=== PATIENT | female | born 1970 | race Caucasian/White ===

== ENCOUNTER 2017-03-01 17:40 | Emergency (ER) | payer MEDICAID, OTHER ==
[2017-03-01] MEDS ORDERED: 0.9 % SODIUM CHLORIDE 1,000 ML BAG IV ONE (18:22)
[2017-03-01] MEDS ORDERED: DIAZEPAM 5 MG/1 ML TUBX IVP ONE (18:25)
[2017-03-01] MEDS ORDERED: ACETAMINOPHEN 500 MG TABLET PO ONE (18:31)
--- NOTE | 2017-03-01 19:04 | Emergency Department Record ---
History of Present Illness - General Chief Complaint: Neck Injury/Pain Stated Complaint: HEAD AND NECK PAIN Time Seen by Provider: 03/01/17 18:19 Source: Patient Mode of Arrival: Ambulatory Limitations: No limitations - History of Present Illness Initial Comments: pt just got back from [place] and has pain in her head and neck and upper back on both sides. she denies any injury. she has never had anything like this before. she thinks she might have a sinus infection. she denies numbness. MD Complaint: Neck pain, Upper back pain, Other Onset/Timin -: Days(s) Place: Other Radiation: Head, Upper back Severity: Mild Quality: Aching Consistency: Constant Improves With: None Worsens With: None - Related Data Home Medications Medication Instructions Recorded Confirmed Last Taken Alprazolam [Xanax] 0.5 mg PO BID PRN 12/14/14 03/01/17 02/27/17 Paroxetine HCl [Paxil] 20 mg PO DAILY 12/14/14 03/01/17 02/27/17 Previous Rx's Medication Instructions Recorded Amoxicillin/Potassium Clav 1 tab PO BID #20 tab 03/01/17 [Augmentin 875-125 Tablet] Cyclobenzaprine HCl [Flexeril] 10 mg PO TID #10 tablet 03/01/17 Hydrocodone/Acetaminophen [Webster 1 each PO QID #7 tablet 03/01/17 5-325 Tablet] Ibuprofen [Motrin 600Mg] 600 mg PO Q6H #20 tablet 03/01/17 Allergies Allergy/AdvReac Type Severity Reaction Status Date / Time No Known Drug Allergies Allergy Verified 06/19/16 16:38 Review of Systems Reviewed: No additional complaints except as noted below Constitutional: Reports: As per HPI. Denies: Chills, Fever, Malaise, Night sweats, Weakness, Weight change Eyes: Reports: As per HPI. Denies: Eye discharge, Eye pain, Photophobia, Vision change ENT: Reports: As per HPI. Denies: Congestion, Dental pain, Ear pain, Epistaxis , Hearing loss, Throat pain Respiratory: Reports: As per HPI. Denies: Cough, Dyspnea, Hemoptysis, Stridor, Wheezes Cardiovascular: Reports: As per HPI. Denies: Arrhythmia, Chest pain, Dyspnea on exertion, Edema, Murmurs, Orthopnea, Palpitations, Paroxysmal nocturnal dyspnea, Rheumatic Fever, Syncope Endocrine: Reports: As per HPI. Denies: Fatigue, Heat or cold intolerance, Polydipsia, Polyuria Gastrointestinal: Reports: As per HPI. Denies: Abdominal pain, Constipation, Diarrhea, Hematemesis, Hematochezia, Melena, Nausea, Vomiting Genitourinary: Reports: As per HPI. Denies: Abnormal menses, Discharge, Dyspareunia, Dysuria, Frequency, Hematuria, Incontinence, Retention, Urgency Musculoskeletal: Reports: As per HPI. Denies: Arthralgia, Back pain, Gout, Joint swelling, Myalgia, Neck pain Skin: Reports: As per HPI. Denies: Bruising, Change in color, Change in hair/ nails, Lesions, Pruritus, Rash Neurological: Reports: As per HPI. Denies: Abnormal gait, Confusion, Headache, Numbness, Paresthesias, Seizure, Tingling, Tremors, Vertigo, Weakness Psychiatric: Reports: As per HPI. Denies: Anxiety, Auditory hallucinations, Depression, Homicidal thoughts, Suicidal thoughts, Visual hallucinations Hematological/Lymphatic: Reports: As per HPI. Denies: Anemia, Blood Clots, Easy bleeding, Easy bruising, Swollen glands Past Medical History - SOCIAL HISTORY Smoking Status: Current every day smoker Drug Use: None - RESPIRATORY Hx Respiratory Disorders: No - CARDIOVASCULAR Hx Cardio Disorders: No - NEURO Hx Neuro Disorders: No - GI Hx GI Disorders: No - Hx Genitourinary Disorders: No - ENDOCRINE Hx Endocrine Disorders: No - MUSCULOSKELETAL Hx Musculoskeletal Disorders: No - PSYCH Hx Psych Problems: Yes Hx Anxiety: Yes Hx Depression: Yes - HEMATOLOGY/ONCOLOGY Hx Hematology/Oncology Disorders: No Family Medical History Hx Cancer: Father, Brother/Sister, Grandparents Hx Heart Disease: Father, Mother, Grandparents Hx Resp Disorders: Grandparents Hx Stroke: Grandparents Physical Exam - General General Appearance: Alert, Oriented x3, Cooperative, Mild distress - Head Head exam: Normal inspection - Eye Eye exam: Normal appearance, PERRL, EOMI Pupils: Normal accommodation - ENT ENT exam: Normal exam, Mucous membranes moist, Normal external ear exam, Normal orophraynx Ear exam: Normal external inspection. negative: External canal tenderness Nasal Exam: Normal inspection. negative: Discharge, Sinus tenderness Mouth exam: Normal external inspection, Tongue normal Teeth exam: Normal inspection. negative: Dental caries Throat exam: Normal inspection. negative: Tonsillar erythema, Tonsillar exudate - Neck Neck exam: Normal inspection, Full ROM, Tenderness (in musculature only) - Respiratory Respiratory exam: Normal lung sounds bilaterally. negative: Respiratory distress - Cardiovascular Cardiovascular Exam: Regular rate, Normal rhythm, Normal heart sounds - GI/Abdominal GI/Abdominal exam: Soft, Normal bowel sounds. negative: Tenderness - Rectal Rectal exam: Deferred - exam: Deferred - Extremities Extremities exam: Normal inspection, Full ROM, Normal capillary refill, Tenderness Image of Full Body: 1 - tender - Back Back exam: Reports: Normal inspection, Full ROM. Denies: Muscle spasm, Rash noted, Tenderness - Neurological Neurological exam: Alert, CN II-XII intact, Normal gait, Oriented X3 - Psychiatric Psychiatric exam: Normal affect, Normal mood - Skin Skin exam: Dry, Intact, Normal color, Warm Medical Decision Making - Management Options MDM Management: Additional Work-up Planned (e.g. ADM/Transfer/OP Study) - Data Complexity MDM Data: Labs Ordered and/or Reviewed, X-Ray Ordered and/or Reviewed - Lab Data Result diagrams: 03/01/17 19:05 03/01/17 19:05 Disposition Disposition: Discharge Clinical Impression: Sinusitis Qualifiers: Sinusitis location: maxillary Chronicity: acute Recurrence: non-recurrent Qualified Code(s): J01.00 - Acute maxillary sinusitis, unspecified Cervical muscle strain Qualifiers: Encounter type: initial encounter Qualified Code(s): S16.1XXA - Strain of muscle, fascia and tendon at neck level, initial encounter Disposition: Home, Self-Care Condition: (1) Good Instructions: Cervical Sprain (ED), Sinusitis (ED) Additional Instructions: follow up with family doctor thursday. return sooner if worse. moist heat to neck, Prescriptions: Amoxicillin/Potassium Clav [Augmentin 875-125 Tablet] 1 tab PO BID #20 tab Cyclobenzaprine HCl [Flexeril] 10 mg PO TID #10 tablet Hydrocodone/Acetaminophen [Webster 5-325 Tablet] 1 each PO QID #7 tablet Ibuprofen [Motrin 600Mg] 600 mg PO Q6H #20 tablet Forms: Patient Portal Access
[2017-03-01 19:12] LABS: BASO % 0.4 % (0-6); HEMATOCRIT 49.6 % (35.0-47.0); HEMOGLOBIN 17.1 gm/dl (11.6-16.0); LYMPH % 27.3 % (16-45); MEAN CELL VOLUME 90.3 fl (81-97); MEAN CORPUSCULAR HEMOGLOBIN 31.1 pg (27-33); MEAN CORPUSCULAR HGB CONC 34.5 g/dl (32-36); MEAN PLATELET VOLUME 11.7 fl (7.4-10.4); MONO % 12.3 % (0-9); PLATELET COUNT 135 K/uL (130-400); RED BLOOD COUNT 5.49 M/uL (3.80-5.40); WHITE BLOOD COUNT W/O DIFF 4.7 K/uL (4.2-12.2)
[2017-03-01 19:27] LABS: BLOOD UREA NITROGEN 11 mg/dL (7-17); CREATININE 0.7 mg/dL (0.52-1.04); EST GLOMERULAR FILTRATION RATE > 60 ml/min; GLUCOSE,RANDOM 103 mg/dL (70-110)
[2017-03-01 19:42] LABS: ERYTHROCYTE SEDIMENTATION RATE 9 mm/hr (0-20)
[2017-03-01] MEDS ORDERED: POTASSIUM CHLORIDE 20 MEQ TABLET PO ONE (20:31)
[2017-03-01] MEDS ORDERED: KETOROLAC 30 MG/ML VIAL IVP ONE (20:35)
[2017-03-01] MEDS ORDERED: AMOXICILLIN/POTASSIUM CLAV 875MG/125MG TABLET PO ONE (20:36)
--- NOTE | 2017-03-05 15:14 | CT SCAN REPORT ---
EXAM: HEAD CT WITHOUT CONTRAST HISTORY: HEADACHE FOR FIVE DAYS, STIFF NECK AT THE BASE OF THE SKULL INTRACTABLE. TECHNIQUE: Contiguous axial images from the cerebral convexities to the foramen magnum were obtained without contrast. Comparison: Head CT 08/15/12. FINDINGS: The brain volume is normal. No acute intracranial hemorrhage, mass effect, or midline shift. No CT evidence of acute infarct. The ventricles, basal cisterns, and sulci are within normal limits. The osseous structures and soft tissues are unremarkable. Mild mucosal thickening right maxillary sinus. IMPRESSION: 1. NORMAL HEAD CT. 2. MILD MUCOSAL THICKENING IN THE RIGHT MAXILLARY SINUS COULD RELATE TO CHRONIC SINUSITIS. JOB NUMBER: [id number] MTDD
== END 2017-03-01 21:34 | disposition home or self-care (01) ==
LOC: ER 17:40
DX: S16.1XXA Strain of muscle, fascia and tendon at neck level, initial encounter (principal); J01.00 Acute maxillary sinusitis, unspecified; R51 Headache; X58.XXXA Exposure to other specified factors, initial encounter
CPT/HCPCS: 99284 ×2; 96374; 96375; 85025; 85651; 80048; 70450; J1885; J3360; J7030

== ENCOUNTER 2017-11-09 14:05 | Observation (INO) | payer SELFPAY ==
--- NOTE | 2017-11-09 14:21 | Emergency Department Record ---
History of Present Illness - General Chief Complaint: Shortness of breath Stated Complaint: FELI Time Seen by Provider: 11/09/17 14:12 Source: Patient Mode of Arrival: Ambulatory Limitations: No limitations - History of Present Illness Initial Comments: 47 yo female reports she has not felt well since about 7am. She reports she had an AMI on Thursday one week ago. She reports she had 3 stents placed at [facility] [place]. She had some leakage from the cath sight otherwise reports no complications. She reports that throughout the day she has felt a heaviness in the chest and a feeling of shortness of breath. The symptoms seem worse with activity. No fever. No cough. No leg pain or swelling. No pain into the back. She had some sweating earlier today as well. MD Complaint: Chest pain, Shortness of breath Onset/Timin -: Hour(s) Radiation: Other Quality: Other Consistency: Constant Improves With: Nothing Worsens With: Nothing Context: Other (Recent Acute IN) Associated Symptoms: Chest pain (heavy feeling), Diaphoresis Treatments Prior to Arrival: None - Related Data Home Oxygen Therapy: No Home Medications Medication Instructions Recorded Confirmed Last Taken Aspirin 81 mg PO DAILY 11/09/17 11/09/17 11/09/17 Atorvastatin Calcium 10 mg PO DAILY 11/09/17 11/09/17 Unknown Lisinopril 10 mg PO DAILY 11/09/17 11/09/17 11/09/17 Metoprolol Succinate [Toprol Xl] 12.5 mg PO BID 11/09/17 11/09/17 11/09/17 Ticagrelor [Brilinta] 60 mg PO BID 11/09/17 11/09/17 11/09/17 Allergies Allergy/AdvReac Type Severity Reaction Status Date / Time No Known Drug Allergies Allergy Verified 11/09/17 14:17 Travel Screening - Travel/Exposure Within Last 30 Days Have you traveled within the last 30 days?: No Review of Systems Constitutional: Denies: Chills, Fever, Malaise, Weakness Eyes: Denies: Eye discharge ENT: Denies: Congestion, Ear pain, Epistaxis, Throat pain Respiratory: Reports: Dyspnea. Denies: Cough, Hemoptysis, Stridor, Wheezes Cardiovascular: Reports: Chest pain, Dyspnea on exertion. Denies: Arrhythmia, Edema, Palpitations, Syncope Endocrine: Denies: Fatigue, Polydipsia, Polyuria Gastrointestinal: Denies: Abdominal pain, Diarrhea, Nausea, Vomiting Genitourinary: Denies: Dysuria, Urgency Musculoskeletal: Denies: Arthralgia, Back pain, Joint swelling, Myalgia Skin: Reports: Bruising (right groin after surgery). Denies: Change in color, Rash Neurological: Denies: Confusion, Headache, Numbness, Weakness Psychiatric: Denies: Anxiety Hematological/Lymphatic: Denies: Blood Clots, Easy bleeding, Easy bruising, Swollen glands Past Medical History - SOCIAL HISTORY Smoking Status: Current every day smoker Drug Use: None - RESPIRATORY Hx Respiratory Disorders: No - CARDIOVASCULAR Hx Cardio Disorders: No - NEURO Hx Neuro Disorders: No - GI Hx GI Disorders: No - Hx Genitourinary Disorders: No - ENDOCRINE Hx Endocrine Disorders: No - MUSCULOSKELETAL Hx Musculoskeletal Disorders: No - PSYCH Hx Psych Problems: Yes Hx Anxiety: Yes Hx Depression: Yes - HEMATOLOGY/ONCOLOGY Hx Hematology/Oncology Disorders: No Family Medical History Hx Cancer: Father, Brother/Sister, Grandparents Hx Heart Disease: Father, Mother, Grandparents Hx Resp Disorders: Grandparents Hx Stroke: Grandparents Physical Exam - General General Appearance: Alert, Oriented x3, Cooperative, No acute distress Limitations: No limitations - Head Head exam: Atraumatic, Normal inspection - Eye Eye exam: Normal appearance, PERRL. negative: Conjunctival injection, Scleral icterus - ENT ENT exam: Normal exam, Mucous membranes moist Ear exam: Normal external inspection Nasal Exam: Normal inspection Mouth exam: Normal external inspection Teeth exam: Normal inspection Throat exam: Normal inspection - Neck Neck exam: Normal inspection, Full ROM. negative: Tenderness - Respiratory Respiratory exam: Normal lung sounds bilaterally. negative: Respiratory distress - Cardiovascular Cardiovascular Exam: Regular rate, Normal rhythm, Normal heart sounds Peripheral Pulses: 2+: Radial (R), Radial (L) - GI/Abdominal GI/Abdominal exam: Soft. negative: Distended, Guarding, Rebound, Rigid, Tenderness - Rectal Rectal exam: Deferred - exam: Deferred - Extremities Extremities exam: Normal inspection, Full ROM, Normal capillary refill, Other ( no calf pain or swelling). negative: Calf tenderness, Pedal edema, Tenderness - Back Back exam: Reports: Normal inspection, Full ROM. Denies: CVA tenderness (R), CVA tenderness (L), Muscle spasm, Paraspinal tenderness, Rash noted, Tenderness , Vertebral tenderness - Neurological Neurological exam: Alert, Normal gait, Oriented X3, Reflexes normal - Psychiatric Psychiatric exam: Normal affect, Normal mood - Skin Skin exam: Other (bruising to the right groin, soft,) Course Vital Signs 11/09/17 14:10 Temperature 97.5 F L Pulse Rate 52 L Respiratory 16 Rate Blood Pressure 148/91 Pulse Ox 100 - Reevaluation(s) Reevaluation #1: EKG 14:14 sinus bradycardia with a rate of 51, intervals normal, axis normal, ST no acute changes. 11/09/17 14:34 11/09/17 14:52 The Chest XR was negative for acute process. Deep inspiration. 11/09/17 14:53 No acute changes on the CBC or CMP 11/09/17 15:00 The Troponin is 0.012 The BNP is 354 11/09/17 15:13 I discussed the case with Dr Barcenas of [facility] [place] cardi[place]. Given the normal EKG, normal enzymes he did not recommend transfer at this time. He recommended serial enzymes. The patient's shaper set up operator is Dr Baumann. Dr Baumann is at [facility] tomorrow and will be consulted. Medical Decision Making - Lab Data Result diagrams: 11/09/17 14:20 11/09/17 14:20 Disposition Disposition: Admit Clinical Impression: Chest pain, Dyspnea Disposition: Still a Patient at [facility] Decision to Admit: Admit from ER Decision to Admit Date: 11/09/17 Decision to Admit Time: 15:15 Condition: (2) Stable Forms: Patient Portal Access Time of Disposition: 15:15 Quality - Quality Measures Quality Measures: N/A - Blood Pressure Screening Does Patient Have Any of the Following: No Blood Pressure Classification: Hypertensive Reading Systolic Measurement: 148 Diastolic Measurement: 91 Screening for High Blood Pressure: < Pre-Hypertensive BP, F/U Documented > [ [id number]] Pre-Hypertensive Follow-up Interventions: Referral to alternative/primary care provider.
[2017-11-09 14:26] LABS: BASO % 0.6 % (0-6); EOS % 1.2 % (0-6); GRAN % 49.6 % (47-80); HEMATOCRIT 47.7 % (35.0-47.0); LYMPH % 36.2 % (16-45); MEAN CELL VOLUME 92.1 fl (81-97); MEAN CORPUSCULAR HEMOGLOBIN 30.9 pg (27-33); MEAN CORPUSCULAR HGB CONC 33.5 g/dl (32-36); MEAN PLATELET VOLUME 10.8 fl (7.4-10.4); MONO % 12.4 % (0-9); PLATELET COUNT 289 K/uL (130-400); RED BLOOD COUNT 5.18 M/uL (3.80-5.40); RED CELL DISTRIBUTION WIDTH 13.9 % (11.5-14.5); WHITE BLOOD COUNT W/O DIFF 6.7 K/uL (4.2-12.2)
[2017-11-09 14:39] LABS: INR 0.93; PARTIAL THROMBOPLASTIN TIME 27.5 SECONDS (24.5-39.1)
[2017-11-09 14:40] LABS: BLOOD UREA NITROGEN 7 mg/dL (6-20); CREATININE 0.6 mg/dL (0.5-0.9); EST GLOMERULAR FILTRATION RATE > 60 mL/min
[2017-11-09 14:41] LABS: TOTAL PROTEIN 7.5 g/dL (6.6-8.7)
[2017-11-09 14:43] LABS: GLUCOSE,RANDOM 113 mg/dL (74-109)
[2017-11-09 14:45] LABS: ALT/SGPT 35 U/L (<33); AST/SGOT 25 U/L (10.0-35.0)
[2017-11-09 14:46] LABS: ALB/GLOB RATIO 1.3 (1.1-1.8); ALBUMIN 4.3 g/dL (4.0-5.0); ALKALINE PHOSPHATASE 135 U/L (35-104); CREATINE PHOSPHOKINASE 108 U/L (26-192)
--- NOTE | 2017-11-09 15:34 | History & Physical ---
History of Present Illness - Date of Service Date of Service for History & Physical: 11/10/17 - History of Present Illness Admitting Diagnosis: Chest pain History of Present Illness: Mrs. Dye is a 47 year-old female who presented to the ED on 11/09/17 with complaint of "chest heaviness". She stated that she has not felt well since about 7am. She reports she had an AMI on Thursday one week ago. She reports she had 3 stents placed at [facility] [place]. She had some leakage from the cath sight otherwise reports no complications. She reports that throughout the day she has felt a heaviness in the chest and a feeling of shortness of breath. The symptoms seem worse with activity. No fever. No cough. No leg pain or swelling. No pain into her back. She had some sweating earlier today as well. Her history includes: ex-smoker (quit on 11/01/17), alcoholism (6 beers per day, has not drank since 11/01/17), anxiety and depression, and VA with 3 stents on 11/02/17. She has been taking daily ASA 81mg, Brilinta 90mg bid, metoprolol 12.5mg bid, lisinopril 10mg qd, and atorvastatin 40mg qhs since her discharge from [facility] on . In the ED, her vital signs were: BP 148/91, HR 52, RR 16, T 97.5 and 100% O2 on room air. Her CBC and CMP were unremarkable, BNP 354 and troponin 0.012. ECG showed sinus pretty, rate 51, normal intervals and axis, no acute ST changes. Chest x-ray was negative for acute process. Dr. Cabral discussed the case with Dr. Barcenas of [facility] cardiology. Given the normal EKG, normal enzymes he did not recommend transfer at this time. He recommended serial enzymes. The patient's bead machine operator is Dr Baumann, who will be at [facility] on 11/10, cardiology consult ordered. Based on pt's recent history of VA, pt. was admitted for observation of chest pain with serial enzymes. Pt. was placed on continuous heart monitor and SaO2 monitor. 11/09/17 1600: Pt. is resting in bed, she states that her feeling of "chest heaviness" has slightly improved. She states that her shortness of breath has resolved. She states that she had been feeling well since she was discharged from [facility] and that she even went outside yesterday to clear snow from her vehicles. She also did mention to her RN that she had been experiencing increased belching and reflux since last night. Plan to continue monitoring serial enzymes, vital signs, EKG strips. Will order 40mg protonix IV for gerd symptoms. Cardiology consult for Dr. Weldon was ordered by Dr. Cabral. Travel Screening - Travel/Exposure Within Last 30 Days Have you traveled within the last 30 days?: No Review of Systems Constitutional: Denies: Chills, Fever, Malaise, Weakness Eyes: Denies: Eye discharge ENT: Denies: Congestion, Ear pain, Epistaxis, Throat pain Respiratory: Denies: Cough, Hemoptysis, Stridor, Wheezes Cardiovascular: Reports: Chest pain, Dyspnea on exertion. Denies: Arrhythmia, Edema, Palpitations, Syncope Endocrine: Denies: Fatigue, Polydipsia, Polyuria Gastrointestinal: Denies: Abdominal pain, Diarrhea, Nausea, Vomiting Genitourinary: Denies: Dysuria, Urgency Musculoskeletal: Denies: Arthralgia, Back pain, Joint swelling, Myalgia Skin: Reports: Bruising (right groin after surgery). Denies: Change in color, Rash Neurological: Denies: Confusion, Headache, Numbness, Weakness Psychiatric: Denies: Anxiety Hematological/Lymphatic: Denies: Blood Clots, Easy bleeding, Easy bruising, Swollen glands Past Medical History - SOCIAL HISTORY Smoking Status: Current every day smoker Drug Use: None - RESPIRATORY Hx Respiratory Disorders: No - CARDIOVASCULAR Hx Cardio Disorders: No - NEURO Hx Neuro Disorders: No - GI Hx GI Disorders: No - Hx Genitourinary Disorders: No - ENDOCRINE Hx Endocrine Disorders: No - MUSCULOSKELETAL Hx Musculoskeletal Disorders: No - PSYCH Hx Psych Problems: Yes Hx Anxiety: Yes Hx Depression: Yes - HEMATOLOGY/ONCOLOGY Hx Hematology/Oncology Disorders: No Family Medical History Hx Cancer: Father, Brother/Sister, Grandparents Hx Heart Disease: Father, Mother, Grandparents Hx Resp Disorders: Grandparents Hx Stroke: Grandparents H&P Meds/Allergies - Allergies Allergies: Allergies Allergy/AdvReac Type Severity Reaction Status Date / Time No Known Drug Allergies Allergy Verified 11/09/17 14:17 - Home Medications Home Medications Medication Instructions Recorded Confirmed Last Taken Aspirin 81 mg PO DAILY 11/09/17 11/09/17 11/09/17 Atorvastatin Calcium 10 mg PO DAILY 11/09/17 11/09/17 Unknown Lisinopril 10 mg PO DAILY 11/09/17 11/09/17 11/09/17 Metoprolol Succinate [Toprol Xl] 12.5 mg PO BID 11/09/17 11/09/17 11/09/17 Ticagrelor [Brilinta] 60 mg PO BID 11/09/17 11/09/17 11/09/17 Physical Exam - Vital Signs Vital Signs: Vital Signs - Last 24 Hrs Temp Pulse Pulse Resp BP BP Pulse Ox 11/09/17 15:12 52 L 16 139/91 99 11/09/17 14:10 97.5 F L 52 L 16 148/91 100 - General General Appearance: Alert, Oriented x3, Cooperative, No acute distress Limitations: No limitations - Head Head exam: Atraumatic, Normal inspection - Eye Eye exam: Normal appearance, PERRL. negative: Conjunctival injection, Scleral icterus - ENT ENT exam: Normal exam, Mucous membranes moist Ear exam: Normal external inspection Nasal Exam: Normal inspection Mouth exam: Normal external inspection Teeth exam: Normal inspection Throat exam: Normal inspection - Neck Neck exam: Normal inspection, Full ROM. negative: Tenderness - Respiratory Respiratory exam: Normal lung sounds bilaterally. negative: Respiratory distress - Cardiovascular Cardiovascular Exam: Normal rhythm, Normal heart sounds, Bradycardia. negative : Irregular rhythm, Systolic murmur Peripheral Pulses: 2+: Radial (R), Radial (L), Dorsalis Pedis (R), Dorsalis Pedis (L) - GI/Abdominal GI/Abdominal exam: Soft. negative: Distended, Guarding, Rebound, Rigid, Tenderness - Rectal Rectal exam: Deferred - exam: Deferred - Extremities Extremities exam: Normal inspection, Full ROM, Normal capillary refill, Other ( no calf pain or swelling). negative: Calf tenderness, Pedal edema, Tenderness - Back Back exam: Reports: Normal inspection, Full ROM. Denies: CVA tenderness (R), CVA tenderness (L), Muscle spasm, Paraspinal tenderness, Rash noted, Tenderness , Vertebral tenderness - Neurological Neurological exam: Alert, Normal gait, Oriented X3, Reflexes normal - Psychiatric Psychiatric exam: Normal affect, Normal mood - Skin Skin exam: Other (bruising to the right groin, soft) Results - Labs Result Diagrams: 11/09/17 14:20 02/05/18 14:20 Labs Last 24 Hours: Laboratory Results - last 24 hr 11/09/17 11/09/17 11/09/17 14:20 14:20 14:20 WBC 6.7 RBC 5.18 Hgb 16.0 Hct 47.7 H MCV 92.1 MCH 30.9 MCHC 33.5 RDW 13.9 Plt Count 289 MPV 10.8 H Gran % 49.6 Lymphocytes % 36.2 Monocytes % 12.4 H Eosinophils % 1.2 Basophils % 0.6 PT 10.0 INR 0.93 APTT 27.50 Sodium 140 Potassium 4.1 Chloride 103 Carbon Dioxide 25.0 Anion Gap 12.0 BUN 7 Creatinine 0.6 Estimated GFR > 60 Random Glucose 113 H Calcium 9.5 Total Bilirubin 0.40 AST 25 ALT 35 H Alkaline Phosphatase 135 H Creatine Kinase 108 Troponin T 0.012 H NT-Pro-B Natriuret Pep 358.80 H Total Protein 7.5 Albumin 4.3 Globulin 3.2 Albumin/Globulin Ratio 1.3 - Imaging and Cardiology Chest x-ray Status: Image reviewed (No acute process) VTE H&P Assessment - Risk for VTE Risk for VTE: Yes Risk Level: Moderate Risk Assessment Date: 11/09/17 Risk Assessment Time: 17:00 VTE Orders Placed or Will Be Placed: No VTE Reason for No Prophylaxis: Not Indicated (Pt. is currently on ASA and Brilinta) Plan - Detailed Diagnosis and Plan (1) Chest pain Current Visit: Yes Status: Acute Base Code: R07.9 - CHEST PAIN, UNSPECIFIED Comment: 11/09/17 1700: Hx of VA on 11/02/17 with 3 stents. Tropinin in ED was 0.012. ECG demonstrated sinus pretty, rate of 51, no acute ST changes. Chest xray negative for acute process. Plan to continue serial troponins, monitor cardiac rhythm and SaO2, cardiology consulted for 11/10 (Dr. Weldon). (2) At risk for deep venous thrombosis Current Visit: Yes Status: Acute Base Code: Z91.89 - OTH PERSONAL RISK FACTORS, NOT ELSEWHERE CLASSIFIED Comment: 11/09/17 1700: Hx VA on 11/02/17 with 3 stents. Pt. is currently being treated for DVT phyphylaxis with Brilinta 90mg bid and ASA 81mg daily. (3) Full code status Current Visit: Yes Status: Acute Base Code: Z78.9 - OTHER SPECIFIED HEALTH STATUS Comment: 11/09/17 1570: Pt. is full code status
[2017-11-09] MEDS ORDERED: ALPRAZOLAM 0.25 MG TABLET PO PRN (16:30)
[2017-11-09] MEDS ORDERED: PANTOPRAZOLE SODIUM IV 40 MG VIAL IVP SCH (18:30)
[2017-11-09] MEDS: BRILINTA 90 MG PO SCH (21:28)
[2017-11-09] MEDS ORDERED: METOPROLOL SUCC 25 MG PO SCH (22:00)
[2017-11-09] MEDS ORDERED: ATORVASTATIN 40 MG PO SCH (22:00)
[2017-11-09] MEDS ORDERED: METOPROLOL SUCC 25 MG TAB.ER PO SCH (22:00)
[2017-11-09] MEDS ORDERED: TICAGRELOR 60 MG PO SCH (22:00)
[2017-11-09] MEDS ORDERED: ATORVASTATIN 20 MG TABLET PO SCH (22:00)
[2017-11-10] MEDS: BRILINTA 90 MG PO SCH (09:21)
[2017-11-10] MEDS ORDERED: ASPIRIN 81 MG CHEWABLE TABLET PO SCH (10:00)
[2017-11-10] MEDS ORDERED: PAROXETINE HCL 10 MG TABLET PO SCH (10:00)
--- NOTE | 2017-11-10 10:48 | Discharge Summary ---
Providers Discharge Summary Date: 11/10/17 Date of admission: 11/09/17 16:10 Expected Date of Discharge: 11/10/17 Attending physician: DA HERNADEZ Primary care physician: RENEA MERINO D.O. Physical Exam - Vital Signs Vital Signs: Vital Signs - Last 24 Hrs Temp Pulse Pulse Pulse Resp BP BP 11/10/17 08:00 55 L 99 H 117/68 11/09/17 20:59 56 L 16 11/09/17 20:00 98 F 56 L 16 122/72 11/09/17 17:24 55 L 12 11/09/17 16:25 98.8 F 54 L 17 148/79 11/09/17 16:21 98.1 F 55 L 16 139/98 Pulse Ox 11/10/17 08:00 11/09/17 20:59 11/09/17 20:00 98 11/09/17 17:24 11/09/17 16:25 100 11/09/17 16:21 100 - General General Appearance: Alert, Oriented x3, Cooperative, No acute distress Limitations: No limitations - Head Head exam: Atraumatic, Normal inspection - Eye Eye exam: Normal appearance, PERRL. negative: Conjunctival injection, Scleral icterus - ENT ENT exam: Normal exam, Mucous membranes moist Ear exam: Normal external inspection Nasal Exam: Normal inspection Mouth exam: Normal external inspection Teeth exam: Normal inspection Throat exam: Normal inspection - Neck Neck exam: Normal inspection, Full ROM. negative: Tenderness - Respiratory Respiratory exam: Normal lung sounds bilaterally. negative: Respiratory distress - Cardiovascular Cardiovascular Exam: Normal rhythm, Normal heart sounds, Bradycardia. negative : Irregular rhythm, Systolic murmur Peripheral Pulses: 2+: Radial (R), Radial (L), Dorsalis Pedis (R), Dorsalis Pedis (L) - GI/Abdominal GI/Abdominal exam: Soft. negative: Distended, Guarding, Rebound, Rigid, Tenderness - Rectal Rectal exam: Deferred - exam: Deferred - Extremities Extremities exam: Normal inspection, Full ROM, Normal capillary refill, Other ( no calf pain or swelling). negative: Calf tenderness, Pedal edema, Tenderness - Back Back exam: Reports: Normal inspection, Full ROM. Denies: CVA tenderness (R), CVA tenderness (L), Muscle spasm, Paraspinal tenderness, Rash noted, Tenderness , Vertebral tenderness - Neurological Neurological exam: Alert, Normal gait, Oriented X3, Reflexes normal - Psychiatric Psychiatric exam: Normal affect, Normal mood - Skin Skin exam: Other (bruising to the right groin, soft) Hospitalization - Hospitalization Admission Diagnosis: Chest pain - Problem List/Discharge Diagnosis (1) Chest pain Status: Acute Base Code: R07.9 - CHEST PAIN, UNSPECIFIED Comment: 11/10/17: Chest pain resolved. Hx of CA on 11/02/17 with 3 stents. Initial troponin was 0.012 and three sets have been <0.010. EKG demonstrated sinus pretty, rate of 51 , no acute ST changes. Chest xray negative for acute process. -Discussed plan with her business objects consultant, Dr. Baumann. He recommends decreasing her metoprolol dose. Patient had echocardiogram done last week prior to dc at [facility]. With no acute ST changes and no elevations in the enzymes he felt she was appropriate to follow up as outpatient on 11/17 as previously scheduled. -Will have her continue PPI therapy 40mg po daily until she follows up with her pcp. -plan to discharge home today. (2) Full code status Status: Acute Base Code: Z78.9 - OTHER SPECIFIED HEALTH STATUS Comment: 11/10 1700: Pt. is full code status (3) At risk for deep venous thrombosis Status: Acute Base Code: Z91.89 - OTH PERSONAL RISK FACTORS, NOT ELSEWHERE CLASSIFIED Comment: 11/10/17: Hx CA on 11/02/17 with 3 stents. -continue Brilinta 90mg bid and ASA 81mg daily. - Hospitalization Course Disposition: Home, Self-Care Hospital Course: Mrs. Dye is a 47 year-old female who presented to the ED on 11/09/17 with complaint of "chest heaviness". She stated that she has not felt well since about 7am. She reports she had an AMI on Thursday one week ago. She reports she had 3 stents placed at [facility]. She had some leakage from the cath sight otherwise reports no complications. She reports that throughout the day she has felt a heaviness in the chest and a feeling of shortness of breath. The symptoms seem worse with activity. No fever. No cough. No leg pain or swelling. No pain into her back. She had some sweating earlier today as well. Her history includes: ex-smoker (quit on 11/01/17), alcoholism (6 beers per day, has not drank since 11/01/17), anxiety and depression, and CA with 3 stents on 11/02/17. She has been taking daily ASA 81mg, Brilinta 90mg bid, metoprolol 12.5mg bid, lisinopril 10mg qd, and atorvastatin 40mg qhs since her discharge from [facility] on . In the ED, her vital signs were: BP 148/91, HR 52, RR 16, T 97.5 and 100% O2 on room air. Her CBC and CMP were unremarkable, BNP 354 and troponin 0.012. ECG showed sinus pretty, rate 51, normal intervals and axis, no acute ST changes. Chest x-ray was negative for acute process. Dr. Cabral discussed the case with Dr. Barcenas of [facility] cardiology. Given the normal EKG, normal enzymes he did not recommend transfer at this time. He recommended serial enzymes. The patient's business objects consultant is Dr Baumann, who will be at [facility] on 11/10, cardiology consult ordered. Based on pt's recent history of CA, pt. was admitted for observation of chest pain with serial enzymes. Pt. was placed on continuous heart monitor and SaO2 monitor. 11/09/17 1600: Pt. is resting in bed, she states that her feeling of "chest heaviness" has slightly improved. She states that her shortness of breath has resolved. She states that she had been feeling well since she was discharged from [facility] and that she even went outside yesterday to clear snow from her vehicles. She also did mention to her RN that she had been experiencing increased belching and reflux since last night. Plan to continue monitoring serial enzymes, vital signs, EKG strips. Will order 40mg protonix IV for gerd symptoms. Cardiology consult for Dr. Weldon was ordered by Dr. Cabral. 11/10/17- Patient states she is feeling better today. She still feels at times that she has to take a deep breath but also admits to feeling anxious and being under a lot of stress since last week. she denies any light-headedness, palpitations, lower extremity swelling. She feels like the protonix has helped her indigestion. Condition at Discharge: (2) Stable Discharge Medications - Discharge Medications Prescriptions: Metoprolol Succinate 12.5 mg PO DAILY #30 tab.er.24h Home Medications: Ambulatory Orders Alprazolam [Xanax] 0.5 mg PO BID PRN 12/14/14 [Last Taken 02/27/17] Paroxetine HCl [Paxil] 20 mg PO DAILY 12/14/14 [Last Taken 02/27/17] Aspirin 81 mg PO DAILY 11/09/17 [Last Taken 11/09/17] Atorvastatin Calcium 40 mg PO QHS 11/10/17 [Last Taken Unknown] Lisinopril [Prinivil] 5 mg PO 1200 11/10/17 [Last Taken Unknown] Metoprolol Succinate 12.5 mg PO DAILY #30 tab.er.24h 11/10/17 [Last Taken Unknown] Ticagrelor [Brilinta] 90 mg PO BID 11/10/17 [Last Taken Unknown] Discharge Plan - Discharge Instructions Activity at Discharge: As Per Cardiac Rehab Diet at Discharge: Low Fat, Low Cholesterol Instructions: Myocardial Infarction (DC) Additional Instructions: Follow up appointments have been scheduled for you as follows: Dr. Renea Merino-11/12 at 1:10pm [address] [place] [address], Follow up with Dr. Baumann on 11/17 as previously scheduled Stop the metoprolol tartrate. Start metoprolol succinate. Break one of your 25mg tablets in half to take 12.5mg once daily Please call with any questions or concerns Return to ED for any new or worsening symptoms Quality Measures - Quality Measures Quality Measures: Documentation of Current Medications in Medical Record, Screening for High Blood Pressure and F/U Documented - Current Medications Quality Measure: Measure #130: Documentation of Current Medications Documentation of Current Medications: <Current Medications Documented/Reviewed> [G8427] - Blood Pressure Screening Quality Measure: Screening for High Blood Pressure and Follow-Up Documented Does Patient Have Any of the Following: Active Dx of HTN Blood Pressure Classification: Hypertensive Reading Systolic Measurement: 139 Diastolic Measurement: 98 Screening for High Blood Pressure: Patient Exclusion, Hx of HTN [G9744] - Elder Abuse Suspicion Index EASI Reference Information: Yue SEQUEIRA, Estefani Montaño, Woo D, Wild Ortega.Development and validation of a tool to assist physicians identification of elder abuse: The Elder Abuse Suspicion Index (EASI ). Journal of Elder Abuse and Neglect, 2008; 20 (3): 276-300.
[2017-11-10] MEDS ORDERED: PATIENT OWN MED: LISINOPRIL 5 MG PO SCH (12:00)
--- NOTE | 2017-11-10 19:14 | RADIOLOGY REPORT ---
EXAM: CHEST 1 VIEW HISTORY: CHEST HEAVY. SHORTNESS OF BREATH, DIFFICULTY IN BREATHING TODAY. TECHNIQUE: Two AP portable views of the chest to encompass the upper and lower aspect of the chest. COMPARISON: Two-view chest 02/13/13. FINDINGS: Heart size is within normal limits. Mild apical pleural thickening bilaterally, as before. No definite acute infiltrate seen. No pleural effusion or pneumothorax evident. A relatively deep inspiration has been taken, which could represent some underlying COPD. IMPRESSION: DEEP INSPIRATION. MILD APICAL PLEURAL THICKENING BILATERALLY. NO ACUTE INFILTRATE EVIDENT. JOB NUMBER: [id number] [facility]
[2017-11-10] MEDS ORDERED: PATIENT OWN MED: METOPROLOL TARTRATE 25 MG PO SCH (22:00)
== END 2017-11-10 16:46 | disposition home or self-care (01) ==
LOC: ER 14:05 → MEDSURG 16:10
PROVIDERS: ADMIT Internal Medicine; ATTEND Internal Medicine
DX: I23.8 Other current complications following acute myocardial infarction (principal); R07.9 Chest pain, unspecified; E78.00 Pure hypercholesterolemia, unspecified
CPT/HCPCS: 71045; 80053; 82550; 83880; 84484; 85025; 85610; 85730; 93005; 93010; 94010; 99220; 99285; C9113

== ENCOUNTER 2018-01-31 10:16 | Emergency (ER) | payer MEDICAID ==
--- NOTE | 2018-01-31 10:29 | Emergency Department Record ---
History of Present Illness - General Chief Complaint: Ankle/Foot Injury Stated Complaint: R FOOT INJURY Time Seen by Provider: 01/31/18 10:23 Source: Patient Mode of Arrival: Ambulatory Limitations: No limitations - History of Present Illness Initial Comments: 47 yo female presents with right foot pain and swelling. She was at her sons soccer game last night. She was standing near the field. A player approached her to save a ball and stepped on the right foot. She has pain and swelling in the mid foot. No other injury. She is on aspirin and plavix. No history of prior foot injury. MD Complaint: Foot injury Onset/Timin -: Days(s) Injury: Foot: Right Type of Injury: Blunt, Other Place: Street/outdoors Severity: Mild Severity scale (1-10): 5 Improves With: Nothing Worsens With: Palpation, Weight bearing Associated Symptoms: Ambulatory, Other - Related Data Home Medications Medication Instructions Recorded Confirmed Last Taken Clopidogrel Bisulfate [Clopidogrel] 75 mg PO DAILY 01/31/18 01/31/18 Unknown Previous Rx's Medication Instructions Recorded Metoprolol Succinate 12.5 mg PO DAILY #30 tab.er.24h 11/10/17 Allergies Allergy/AdvReac Type Severity Reaction Status Date / Time No Known Drug Allergies Allergy Verified 11/09/17 14:17 Travel Screening - Travel/Exposure Within Last 30 Days Have you traveled within the last 30 days?: No Review of Systems Constitutional: Denies: Chills, Fever, Weakness Eyes: Denies: Eye discharge ENT: Denies: Congestion, Throat pain Respiratory: Denies: Cough, Dyspnea Cardiovascular: Denies: Chest pain, Syncope Endocrine: Denies: Fatigue Gastrointestinal: Denies: Abdominal pain, Diarrhea, Nausea, Vomiting Genitourinary: Denies: Dysuria, Urgency Musculoskeletal: Reports: As per HPI, Arthralgia, Joint swelling. Denies: Back pain Skin: Reports: As per HPI, Bruising Neurological: Denies: Abnormal gait, Headache, Numbness, Tingling, Tremors, Weakness Psychiatric: Denies: Anxiety Hematological/Lymphatic: Reports: Easy bruising. Denies: Easy bleeding Past Medical History - SOCIAL HISTORY Smoking Status: Current every day smoker - RESPIRATORY Hx Respiratory Disorders: No - CARDIOVASCULAR Hx Cardio Disorders: No Hx Cardiac Cath: Yes Hx Chest Pain: Yes Hx Heart Attack: Yes Comment:: high cholesterol - NEURO Hx Neuro Disorders: No - GI Hx GI Disorders: No - Hx Genitourinary Disorders: No - ENDOCRINE Hx Endocrine Disorders: No Hx Diabetes: No Hx Thyroid Disease: No - MUSCULOSKELETAL Hx Musculoskeletal Disorders: No - PSYCH Hx Psych Problems: Yes Hx Anxiety: Yes Hx Depression: Yes - HEMATOLOGY/ONCOLOGY Hx Hematology/Oncology Disorders: No Family Medical History Any Significant Family History?: Yes Hx Cancer: Father, Brother/Sister, Grandparents Hx Heart Disease: Father, Mother, Grandparents Hx Resp Disorders: Grandparents Hx Stroke: Grandparents Physical Exam - General General Appearance: Alert, Oriented x3, Cooperative, No acute distress Limitations: No limitations - Head Head exam: Atraumatic, Normal inspection - Eye Eye exam: Normal appearance. negative: Conjunctival injection, Scleral icterus - ENT ENT exam: Normal exam Ear exam: Normal external inspection Nasal Exam: Normal inspection Mouth exam: Normal external inspection - Neck Neck exam: Normal inspection - Cardiovascular Peripheral Pulses: 2+: Dorsalis Pedis (R) - Rectal Rectal exam: Deferred - exam: Deferred - Extremities Extremities exam: Joint swelling, Normal capillary refill, Tenderness. negative : Normal inspection Image of Feet: 1 - bruising, tenderness, mild swelling, no deformity, intact skin - Back Back exam: Reports: Full ROM - Neurological Neurological exam: Alert, Oriented X3 - Psychiatric Psychiatric exam: Normal affect, Normal mood. negative: Agitated, Anxious - Skin Skin exam: Other (bruising) Course Vital Signs 01/31/18 10:19 Temperature 98.0 F Pulse Rate 80 Respiratory 18 Rate Blood Pressure 159/104 Pulse Ox 98 - Reevaluation(s) Reevaluation #1: 01/31/18 10:28 Foot XR ordered 01/31/18 10:40 The foot XR was reviewed. No displaced fracture or dislocation She was given post op shoe and crutches to use for support and comfort We discussed follow up with PCP for recheck of the results of this ED visit I recommended re-XR in 7-10 days if pain continues Disposition Disposition: Discharge Clinical Impression: Contusion of foot, right Qualifiers: Encounter type: initial encounter Qualified Code(s): S90.31XA - Contusion of right foot, initial encounter Disposition: Home, Self-Care Condition: (1) Good Instructions: Foot Contusion (ED) Additional Instructions: Ice the foot 3 times daily to minimize swelling Use the crutches until the pain is gone Recheck with your doctor in the next 7-10 days if any pain continues. Forms: Patient Portal Access Time of Disposition: 10:43 Quality - Quality Measures Quality Measures: N/A - Blood Pressure Screening Does Patient Have Any of the Following: Active Dx of HTN Blood Pressure Classification: Hypertensive Reading Systolic Measurement: 159 Diastolic Measurement: 104 Screening for High Blood Pressure: Patient Exclusion, Hx of HTN [G9744]
--- NOTE | 2018-02-01 10:55 | RADIOLOGY REPORT ---
EXAM: RIGHT FOOT HISTORY: PAIN. TECHNIQUE: Three views of the right foot were performed. FINDINGS: No evidence of fracture or dislocation. No lytic or blastic lesion. No calcaneal spur. IMPRESSION: NEGATIVE RIGHT FOOT EXAMINATION. JOB NUMBER: [id number] [facility]TD[facility]
== END 2018-01-31 10:50 | disposition home or self-care (01) ==
LOC: ER 10:16
DX: S90.31XA Contusion of right foot, initial encounter (principal); I25.2 Old myocardial infarction; F17.210 Nicotine dependence, cigarettes, uncomplicated; Y93.66 Activity, soccer; Y92.89 Other specified places as the place of occurrence of the external cause
CPT/HCPCS: 99283

== ENCOUNTER 2018-03-02 19:32 | Emergency (ER) | payer MEDICAID ==
[2018-03-02] MEDS ORDERED: ASPIRIN 81 MG CHEWABLE TABLET PO ONE (19:35)
--- NOTE | 2018-03-02 19:43 | Emergency Department Record ---
History of Present Illness - General Chief Complaint: Chest Pain Stated Complaint: CHEST PAIN Time Seen by Provider: 03/02/18 19:35 Source: Patient Mode of Arrival: Ambulatory Limitations: No limitations - History of Present Illness Initial Comments: 47 yo female presents to ED for evaluation of chest discomfort that began approximately 12 hours ago. Patient reports associated fatigue and diaphoresis for the past 2 days as well. Patient reports a history of [place] 4 months ago with similar symptoms, reports 3 stents were placed by Dr. Baumann at that time. Patient denies history of DM, reports taking medication for HTN. Patient rates her discomfort at 8/10, does report pain with deep inspiration, denies calf pain , swelling, or history of DVT/PE. MD Complaint: Chest pain Onset/Timin -: Hour(s) Pain Location: Substernal Pain Radiation: None Severity: Moderate Severity scale (1-10): 8 Quality: Aching Consistency: Constant Improves With: Nothing Worsens With: Nothing Anginal Symptoms: Diaphoresis Treatments Prior to Arrival: None - Related Data On Oral Contraceptives: No Previous Rx's Medication Instructions Recorded Metoprolol Succinate 12.5 mg PO DAILY #30 tab.er.24h 11/10/17 Allergies Allergy/AdvReac Type Severity Reaction Status Date / Time No Known Drug Allergies Allergy Verified 11/09/17 14:17 Review of Systems Constitutional: Reports: Weakness. Denies: Chills, Fever, Malaise Eyes: Denies: Eye discharge, Eye pain ENT: Denies: Congestion, Ear pain, Epistaxis Respiratory: Denies: Cough, Dyspnea Cardiovascular: Reports: Chest pain, Dyspnea on exertion. Denies: Edema Endocrine: Reports: Fatigue. Denies: Heat or cold intolerance Gastrointestinal: Denies: Nausea, Vomiting Genitourinary: Denies: Incontinence, Retention Musculoskeletal: Denies: Arthralgia, Back pain, Gout, Joint swelling Skin: Denies: Bruising, Change in color Neurological: Denies: Abnormal gait, Confusion, Headache, Seizure Psychiatric: Reports: Anxiety Hematological/Lymphatic: Denies: Anemia, Blood Clots Past Medical History - SOCIAL HISTORY Smoking Status: Current every day smoker - RESPIRATORY Hx Respiratory Disorders: No - CARDIOVASCULAR Hx Cardio Disorders: No Hx Cardiac Cath: Yes Hx Chest Pain: Yes Hx Heart Attack: Yes Comment:: high cholesterol - NEURO Hx Neuro Disorders: No - GI Hx GI Disorders: No - Hx Genitourinary Disorders: No - ENDOCRINE Hx Endocrine Disorders: No Hx Diabetes: No Hx Thyroid Disease: No - MUSCULOSKELETAL Hx Musculoskeletal Disorders: No - PSYCH Hx Psych Problems: Yes Hx Anxiety: Yes Hx Depression: Yes - HEMATOLOGY/ONCOLOGY Hx Hematology/Oncology Disorders: No Family Medical History Hx Cancer: Father, Brother/Sister, Grandparents Hx Heart Disease: Father, Mother, Grandparents Hx Resp Disorders: Grandparents Hx Stroke: Grandparents Physical Exam - General General Appearance: Alert, Oriented x3, Cooperative, Moderate distress, Anxious Limitations: No limitations - Head Head exam: Atraumatic, Normocephalic, Normal inspection Head exam detail: negative: Abrasion, Contusion, Zuñiga's sign, General tenderness, Hematoma, Laceration - Eye Eye exam: Normal appearance. negative: Conjunctival injection, Periorbital swelling, Periorbital tenderness, Scleral icterus - ENT Ear exam: negative: Auricular hematoma, Auricular trauma Nasal Exam: negative: Active bleeding, Discharge, Dried blood, Foreign body Mouth exam: negative: Drooling, Laceration, Muffled voice, Tongue elevation - Neck Neck exam: Normal inspection. negative: Meningismus, Tenderness - Respiratory Respiratory exam: Normal lung sounds bilaterally. negative: Rales, Respiratory distress, Rhonchi, Stridor - Cardiovascular Cardiovascular Exam: Regular rate, Normal rhythm, Normal heart sounds - GI/Abdominal GI/Abdominal exam: Soft. negative: Rebound, Rigid, Tenderness - Rectal Rectal exam: Deferred - exam: Deferred - Extremities Extremities exam: Normal inspection. negative: Calf tenderness, Pedal edema, Tenderness - Back Back exam: Denies: CVA tenderness (R), CVA tenderness (L) - Neurological Neurological exam: Alert, Normal gait, Oriented X3 - Psychiatric Psychiatric exam: Normal affect, Normal mood - Skin Skin exam: Normal color. negative: Abrasion Type of lesion: negative: abrasion Course - Reevaluation(s) Reevaluation #1: 03/02/18 19:44 EKG: NSR 97 Normal axis, normal intervals Artifact present, nonspecific ST-T wave changes are present. No significant change from 11/17/17. ASA and nitro ordered for discomfort. Reevaluation #2: 03/02/18 20:13 Patient received Nitro x 2, denies improvement in her symptoms. Reevaluation #3: 03/02/18 20:20 Labs reviewed: AST 143 ALT 80 ALk phos 151. D-dimer 0.25 Troponin appears normal. Will initiate transfer to [facility] for cardiac evaluation. Reevaluation #4: 03/02/18 20:25 Case was discussed with Dr. Anderson, will accept transfer for further evaluation at this time. Reevaluation #5: 03/02/18 20:53 Portable CXR appears negative. Awaiting transfer to [facility]. 03/02/18 22:01 EMS is present for transfer. Medical Decision Making - Lab Data Result diagrams: 03/02/18 19:39 03/02/18 19:39 Disposition Disposition: Transfer Clinical Impression: Chest pain Qualifiers: Chest pain type: chest pain due to myocardial ischemia Ischemic chest pain type : stable angina pectoris Qualified Code(s): I20.8 - Other forms of angina pectoris CAD (coronary artery disease) Qualifiers: Coronary Disease-Associated Artery/Lesion type: [place] artery [place] vs. transplanted heart: [place] heart Associated angina: with stable angina Qualified Code(s): I25.118 - Atherosclerotic heart disease of [place] coronary artery with other forms of angina pectoris Disposition: Acute Care Hospital Transfer Transfer To: [facility] Reason For Transfer: Cardiac evaluation Accepting Physician: Justin Time Discussed w/Accepting Physician: 20:23 Forms: Patient Portal Access Time of Disposition: 20:23 Quality - Quality Measures Quality Measures: N/A - Blood Pressure Screening Does Patient Have Any of the Following: Active Dx of HTN Blood Pressure Classification: Pre-Hypertensive BP Reading Systolic Measurement: 131 Diastolic Measurement: 80 Screening for High Blood Pressure: Patient Exclusion, Hx of HTN [G9744]
[2018-03-02] MEDS: NITROGLYCERIN 0.4MG SL TABLET #25 BTL SL PRN ×2 (19:54→19:59)
[2018-03-02 19:55] LABS: HEMATOCRIT 44.1 % (35.0-47.0); HEMOGLOBIN 14.8 gm/dl (11.6-16.0); MEAN CELL VOLUME 94.2 fl (81-97); MEAN CORPUSCULAR HEMOGLOBIN 31.6 pg (27-33); MEAN CORPUSCULAR HGB CONC 33.6 g/dl (32-36); PLATELET COUNT 223 K/uL (130-400); RED BLOOD COUNT 4.68 M/uL (3.80-5.40); RED CELL DISTRIBUTION WIDTH 13.8 % (11.5-14.5); WHITE BLOOD COUNT W/O DIFF 7.6 K/uL (4.2-12.2)
[2018-03-02 20:09] LABS: BLOOD UREA NITROGEN 5 mg/dL (6-20); CREATININE 0.8 mg/dL (0.5-0.9); EST GLOMERULAR FILTRATION RATE > 60 mL/min
[2018-03-02 20:10] LABS: TOTAL PROTEIN 7.9 g/dL (6.6-8.7)
[2018-03-02 20:12] LABS: GLUCOSE,RANDOM 139 mg/dL (74-109)
[2018-03-02 20:14] LABS: ALT/SGPT 80 U/L (<33)
[2018-03-02 20:15] LABS: ALB/GLOB RATIO 1.3 (1.1-1.8); ALBUMIN 4.4 g/dL (4.0-5.0); ALKALINE PHOSPHATASE 151 U/L (35-104); AST/SGOT 143 U/L (10.0-35.0)
--- NOTE | 2018-03-04 10:19 | RADIOLOGY REPORT ---
EXAM: PORTABLE CHEST HISTORY: DIFFICULTY IN BREATHING. TECHNIQUE: A portable AP upright view of the chest was performed. FINDINGS: The heart size is normal. The lung toro are clear. No infiltrate or pleural effusion. IMPRESSION: NEGATIVE CHEST EXAMINATION. JOB NUMBER: [id number] MTDD
== END 2018-03-02 22:00 | disposition short-term general hospital (02) ==
LOC: ER 19:32
DX: I20.8 Other forms of angina pectoris (principal); I25.118 Atherosclerotic heart disease of native coronary artery with other forms of angina pectoris; R61 Generalized hyperhidrosis; I10 Essential (primary) hypertension; I25.2 Old myocardial infarction; F17.210 Nicotine dependence, cigarettes, uncomplicated
CPT/HCPCS: 71045; 80053; 84484; 85027; 85379; 93005; 93010; 99285

== ENCOUNTER 2018-12-20 13:27 | Observation (INO) | payer MEDICAID ==
[2018-12-20 13:49] LABS: BASO % 0.5 % (0-6); EOS % 0.6 % (0-6); HEMOGLOBIN 15.4 gm/dl (11.6-16.0); LYMPH % 24.1 % (16-45); MEAN CELL VOLUME 92.8 fl (81-97); MEAN CORPUSCULAR HEMOGLOBIN 31.8 pg (27-33); MEAN CORPUSCULAR HGB CONC 34.2 g/dl (32-36); MEAN PLATELET VOLUME 10.6 fl (7.4-10.4); MONO % 11.8 % (0-9); PLATELET COUNT 240 K/uL (130-400); RED BLOOD COUNT 4.85 M/uL (3.80-5.40); RED CELL DISTRIBUTION WIDTH 14.9 % (11.5-14.5); WHITE BLOOD COUNT W/O DIFF 8.6 K/uL (4.2-12.2)
[2018-12-20] MEDS ORDERED: ALPRAZOLAM 0.25 MG TABLET PO ONE (13:53)
--- NOTE | 2018-12-20 13:54 | Emergency Department Record ---
History of Present Illness - General Chief Complaint: Palpitations Stated Complaint: PALPITATIONS Time Seen by Provider: 12/20/18 13:36 Source: Patient Mode of Arrival: EMS Limitations: No limitations - History of Present Illness Initial Comments: The patient is here due to an 8 hour hx of chest palpitations. The patient states she woke up at around 6am with mild chest palpitations. The patient then went back to bed after the kids went to school and then woke up a couple of hours later and the palpitations were worse. She had mild dyspnea with the pain with nausea and vomiting but then did feel like she was anxious so she took a Xanax which did help her. The patient denies any pain or discomfort with the hear pounding feeling and now feels like she is 80% better. She states she has been taking all her medicines but has been out of her Cymbalta for 3 days and feels that could be why she is feeling like this. She does have a hx of an [place] last year and did have 3 stents placed and also did take her ASA and Plavix today. MD Complaint: Palpitations Onset/Timin -: Hour(s) Context: Occurred during rest Arrythmia History: Other Associated Symptoms: Anxiety, Cough - Related Data Home Medications Medication Instructions Recorded Confirmed Last Taken Duloxetine HCl [Cymbalta] 60 mg PO DAILY 12/20/18 12/20/18 Unknown Rosuvastatin Calcium [Crestor] 10 mg PO DAILY 12/20/18 12/20/18 Unknown Previous Rx's Medication Instructions Recorded Metoprolol Succinate 12.5 mg PO DAILY #30 tab.er.24h 11/10/17 Allergies Allergy/AdvReac Type Severity Reaction Status Date / Time No Known Drug Allergies Allergy Verified 11/09/17 14:17 Travel Screening - Travel/Exposure Within Last 30 Days Have you traveled within the last 30 days?: No Review of Systems Constitutional: Denies: Chills, Fever Eyes: Denies: Eye discharge ENT: Denies: Congestion Respiratory: Denies: Cough, Dyspnea Cardiovascular: Reports: Palpitations. Denies: Chest pain, Dyspnea on exertion Endocrine: Denies: Fatigue Gastrointestinal: Denies: Nausea Genitourinary: Denies: Dysuria Musculoskeletal: Denies: Back pain Skin: Denies: Bruising Neurological: Denies: Abnormal gait, Confusion Past Medical History - SOCIAL HISTORY Smoking Status: Current every day smoker - RESPIRATORY Hx Respiratory Disorders: No - CARDIOVASCULAR Hx Cardio Disorders: Yes Hx Cardiac Cath: Yes Hx Chest Pain: Yes Hx Heart Attack: Yes Comment:: high cholesterol - NEURO Hx Neuro Disorders: No - GI Hx GI Disorders: No - Hx Genitourinary Disorders: No - ENDOCRINE Hx Endocrine Disorders: No Hx Diabetes: No Hx Thyroid Disease: No - MUSCULOSKELETAL Hx Musculoskeletal Disorders: No - PSYCH Hx Psych Problems: Yes Hx Anxiety: Yes Hx Depression: Yes - HEMATOLOGY/ONCOLOGY Hx Hematology/Oncology Disorders: No Family Medical History Any Significant Family History?: Yes Hx Cancer: Father, Brother/Sister, Grandparents Hx Heart Disease: Father, Mother, Grandparents Hx Resp Disorders: Grandparents Hx Stroke: Grandparents Physical Exam - General General Appearance: Alert, Oriented x3, Cooperative, No acute distress - Head Head exam: Atraumatic, Normocephalic, Normal inspection - Eye Eye exam: Normal appearance, PERRL, EOMI - ENT Throat exam: Normal inspection. negative: Tonsillar erythema, Tonsillar exudate - Neck Neck exam: Normal inspection, Full ROM. negative: Tenderness - Respiratory Respiratory exam: Normal lung sounds bilaterally. negative: Chest wall tenderness, Respiratory distress - Cardiovascular Cardiovascular Exam: Regular rate, Normal rhythm, Normal heart sounds. negative : Diastolic murmur, Systolic murmur - GI/Abdominal GI/Abdominal exam: Soft, Normal bowel sounds. negative: Tenderness - Extremities Extremities exam: Normal inspection, Full ROM, Normal capillary refill. negative: Tenderness - Back Back exam: Reports: Normal inspection - Neurological Neurological exam: Alert, Normal gait. negative: Abnormal gait, Motor sensory deficit - Psychiatric Psychiatric exam: negative: Anxious Course Vital Signs 12/20/18 13:30 Temperature 97.9 F Pulse Rate 87 Respiratory 16 Rate Blood Pressure 155/91 Pulse Ox 99 - Reevaluation(s) Reevaluation #1: The patient is doing very well at this time. She denies any pain, palpitations or SOB and feels back to normal. The patient feels she probably just had an anxiety attack and now feels much better. Due to her hx of cardiac issues I did recommend a short stay admission for monitoring and repeat cardiac testing and the patient does agree. I also did discuss the case with Jessy (COURTNEY) and she does accept the admission for Dr. Pollard. 12/20/18 14:35 Medical Decision Making - Data Complexity MDM Data: Labs Ordered and/or Reviewed, EKG Ordered and/or Reviewed - Lab Data Result diagrams: 12/20/18 13:40 12/20/18 13:40 Lab Results 12/20/18 Range/Units 13:40 WBC 8.6 (4.2-12.2) K/uL RBC 4.85 (3.80-5.40) M/uL Hgb 15.4 (11.6-16.0) gm/dl Hct 45.0 (35.0-47.0) % MCV 92.8 (81-97) fl MCH 31.8 (27-33) pg MCHC 34.2 (32-36) g/dl RDW 14.9 H (11.5-14.5) % Plt Count 240 (130-400) K/uL MPV 10.6 H (7.4-10.4) fl Gran % 63.0 (47-80) % Lymphocytes % 24.1 (16-45) % Monocytes % 11.8 H (0-9) % Eosinophils % 0.6 (0-6) % Basophils % 0.5 (0-6) % - EKG Data -: EKG Interpreted by Nm EKG: No Acute Changes, Unchanged From Previous Disposition Disposition: Admit Clinical Impression: Heart palpitations Disposition: Still a Patient at [facility] Decision to Admit: Admit from ER Decision to Admit Date: 12/20/18 Decision to Admit Time: 14:37 Accepting Physician: Atul Time Discussed w/Accepting Physician: 14:38 Condition: (2) Stable Forms: Patient Portal Access Time of Disposition: 14:38 Quality - Quality Measures Quality Measures: N/A - Blood Pressure Screening View Details: Yes Does Patient Have Any of the Following: No Blood Pressure Classification: Hypertensive Reading Systolic Measurement: 155 Diastolic Measurement: 91 Screening for High Blood Pressure: < First Hypertensive BP, F/U Documented > [ G8950] First Hypertensive Follow-up Interventions: Referral to alternative/primary care provider.
[2018-12-20 14:02] LABS: BLOOD UREA NITROGEN 6 mg/dL (6-20); CREATININE 0.5 mg/dL (0.5-0.9); EST GLOMERULAR FILTRATION RATE > 60 mL/min
[2018-12-20 14:05] LABS: GLUCOSE,RANDOM 146 mg/dL (74-109)
[2018-12-20 14:08] LABS: CREATINE PHOSPHOKINASE 99 U/L (26-192)
[2018-12-20 14:10] LABS: CKMB 1.9 ng/mL (<3.77)
[2018-12-20] MEDS: ASPIRIN 325 MG TAB ENTERIC-COATED PO SCH (15:27)
[2018-12-20] MEDS: DULOXETINE HCL 30 MG CAPSULE.DR PO SCH (15:27)
[2018-12-20] MEDS ORDERED: ALPRAZOLAM 0.25 MG TABLET PO PRN (15:45)
[2018-12-20] MEDS ORDERED: NICOTINE 21 MG/24 HOUR PATCH TD SCH (17:00)
[2018-12-20] MEDS ORDERED: ACETAMINOPHEN 325 MG TAB PO PRN (21:23)
[2018-12-20] MEDS ORDERED: ROSUVASTATIN CALCIUM 40 MG PO SCH (22:00)
[2018-12-21] MEDS: ASPIRIN 325 MG TAB ENTERIC-COATED PO SCH (09:06)
[2018-12-21] MEDS: DULOXETINE HCL 30 MG CAPSULE.DR PO SCH (09:06)
[2018-12-21] MEDS ORDERED: METOPROLOL SUCC 25 MG TAB.ER PO SCH (10:00)
[2018-12-21] MEDS ORDERED: CLOPIDOGREL 75MG TABLET PO SCH (10:00)
--- NOTE | 2018-12-21 11:08 | History & Physical ---
History of Present Illness - Date of Service Date of Service for History & Physical: 12/21/18 - History of Present Illness Admitting Diagnosis: 1. Acute Heart Palpitations History of Present Illness: Ana Luisa Dye is a 48 y.o. Caucaisn F who presented to the [facility] ED on 12/20/18 d/t an 8 hour hx of chest palpitations. Woke up with mild chest palpitations around 6am and then went back to sleep. Awoke a few hours later with worsened chest palpitations. Other symptoms included mild dyspnea, nausea, vomiting and anxiety. Took a Xanax and did not feel any relief. Also noted that she has been out of her Cymbalta x 3 days. Is concerned d/t having a hx of an [place] last year with 3 stents placed. Given her cardiac history, it was felt an overnight observation was warranted. ED Course Vitals: T 97.9, HR 87, RR 16, BP 155/91, SPO2 99 RA EKG: No Acute Changes Labs: Unremarkable, Troponin normal 12/21/18 1030 Vitals: T 97.7, P 84, BP 119/74, RR 17, Sp02 96% RA Reports that she is feeling well, other than being tired d/t not sleeping well last night. Feels that all of these symptoms are likely r/t being without Cymbalta. Travel Screening - Travel/Exposure Within Last 30 Days Have you traveled within the last 30 days?: No - Travel/Exposure Within Last Year Have you traveled outside the [place] in the last year?: No - Additonal Travel Details Have you been exposed to anyone with a communicable illness?: No - Travel Symptoms Symptom Screening: None Review of Systems Reviewed: No additional complaints except as noted below Constitutional: Denies: Chills, Fever Eyes: Denies: Eye discharge ENT: Denies: Congestion Respiratory: Denies: Cough, Dyspnea Cardiovascular: Denies: Chest pain, Dyspnea on exertion, Palpitations Endocrine: Denies: Fatigue Gastrointestinal: Denies: Nausea Genitourinary: Denies: Dysuria Musculoskeletal: Denies: Back pain Skin: Denies: Bruising Neurological: Denies: Abnormal gait, Confusion Past Medical History - SOCIAL HISTORY Smoking Status: Current every day smoker Alcohol Use: Occasional Alcohol Use Comment: beer Drug Use: None - RESPIRATORY Hx Respiratory Disorders: No - CARDIOVASCULAR Hx Cardio Disorders: Yes Hx Cardiac Cath: Yes (3 stents) Hx Chest Pain: Yes Hx Heart Attack: Yes Comment:: high cholesterol - NEURO Hx Neuro Disorders: No - GI Hx GI Disorders: No - Hx Genitourinary Disorders: No - ENDOCRINE Hx Endocrine Disorders: No Hx Diabetes: No Hx Thyroid Disease: No - MUSCULOSKELETAL Hx Musculoskeletal Disorders: No - PSYCH Hx Psych Problems: Yes Hx Anxiety: Yes Hx Depression: Yes - HEMATOLOGY/ONCOLOGY Hx Hematology/Oncology Disorders: No Family Medical History Any Significant Family History?: Yes Hx Cancer: Father, Brother/Sister, Grandparents Hx Heart Disease: Father, Mother, Grandparents Hx Resp Disorders: Grandparents Hx Stroke: Grandparents H&P Meds/Allergies - Allergies Allergies: Allergies Allergy/AdvReac Type Severity Reaction Status Date / Time No Known Drug Allergies Allergy Verified 11/09/17 14:17 - Home Medications Home Medications Medication Instructions Recorded Confirmed Last Taken Alprazolam 0.25 mg PO BID PRN 12/20/18 12/20/18 Unknown Metoprolol Succinate 25 mg PO DAILY 12/20/18 12/20/18 Unknown Rosuvastatin Calcium [Crestor] 40 mg PO QHS 12/20/18 12/20/18 Unknown Previous Rx's Medication Instructions Recorded Acetaminophen [Tylenol 325Mg] 650 mg PO Q4H PRN tablet 12/21/18 Aspirin Enteric-Coated [Ecotrin 325 mg PO DAILY tabec 12/21/18 (EC)] Duloxetine HCl [Cymbalta] 60 mg PO DAILY #7 capsule. 12/21/18 - Active Medications Active Medications: Current Medications Acetaminophen (Tylenol 325mg) 650 mg PO Q4H PRN PRN Reason: PAIN - MILD TO MODERATE (1-7) Alprazolam (Xanax) 0.25 mg PO BID PRN PRN Reason: ANXIETY Last Admin: 12/20/18 21:42 Dose: 0.25 mg Aspirin (Ecotrin (Ec)) 325 mg PO DAILY [facility] Last Admin: 12/21/18 09:06 Dose: 325 mg Clopidogrel Bisulfate (Plavix) 75 mg PO DAILY [facility] Last Admin: 12/21/18 09:06 Dose: 75 mg Duloxetine HCl (Cymbalta) 60 mg PO DAILY [facility] Last Admin: 12/21/18 09:06 Dose: 60 mg Lisinopril (Zestril) 10 mg PO 1200 [facility] Metoprolol Succinate (Toprol Xl) 12.5 mg PO DAILY [facility] Last Admin: 12/21/18 09:06 Dose: 12.5 mg Nicotine (Nicotine 21mg) 1 patch TD Q24H [facility] Last Admin: 12/20/18 17:38 Dose: 1 patch Non-Formulary Misc (Rosuvastatin Calcium [Crestor] 40 Mg) 40 mg PO QHS [facility] Last Admin: 12/20/18 21:40 Dose: 40 mg Physical Exam - Vital Signs Vital Signs: Vital Signs - Last 24 Hrs Temp Pulse Pulse Resp BP BP BP 12/21/18 08:07 97.7 F 84 17 119/74 12/21/18 03:39 98.2 F 101 H 20 139/91 12/20/18 21:16 97.9 F 69 18 118/73 12/20/18 21:00 78 16 12/20/18 16:39 96 H 17 12/20/18 15:16 98.6 F 96 H 17 138/76 12/20/18 14:57 76 18 128/92 12/20/18 13:30 97.9 F 87 16 155/91 Pulse Ox 12/21/18 08:07 96 12/21/18 03:39 97 12/20/18 21:16 97 12/20/18 21:00 12/20/18 16:39 12/20/18 15:16 96 12/20/18 14:57 97 12/20/18 13:30 99 - General General Appearance: Alert, Oriented x3, Cooperative, No acute distress Limitations: No limitations - Head Head exam: Atraumatic, Normocephalic, Normal inspection - Eye Eye exam: Normal appearance, PERRL, EOMI - ENT Throat exam: Normal inspection. negative: Tonsillar erythema, Tonsillar exudate - Neck Neck exam: Normal inspection, Full ROM. negative: Tenderness - Respiratory Respiratory exam: Normal lung sounds bilaterally. negative: Chest wall tenderness, Respiratory distress - Cardiovascular Cardiovascular Exam: Regular rate, Normal rhythm, Normal heart sounds. negative : Diastolic murmur, Systolic murmur - GI/Abdominal GI/Abdominal exam: Soft, Normal bowel sounds. negative: Tenderness - Extremities Extremities exam: Normal inspection, Full ROM, Normal capillary refill. negative: Tenderness - Back Back exam: Reports: Normal inspection - Neurological Neurological exam: Alert, Normal gait. negative: Abnormal gait, Motor sensory deficit - Psychiatric Psychiatric exam: negative: Anxious Results - Labs Result Diagrams: 12/20/18 13:40 12/20/18 13:40 Labs Last 24 Hours: Laboratory Results - last 24 hr 12/20/18 12/20/18 12/20/18 13:40 13:40 21:25 WBC 8.6 RBC 4.85 Hgb 15.4 Hct 45.0 MCV 92.8 MCH 31.8 MCHC 34.2 RDW 14.9 H Plt Count 240 MPV 10.6 H Gran % 63.0 Lymphocytes % 24.1 Monocytes % 11.8 H Eosinophils % 0.6 Basophils % 0.5 Sodium 141 Potassium 3.8 Chloride 104 Carbon Dioxide 21.0 L Anion Gap 16.0 BUN 6 Creatinine 0.5 Estimated GFR > 60 Random Glucose 146 H Calcium 9.3 Creatine Kinase 99 CK-MB (CK-2) 1.9 Troponin T < 0.010 < 0.010 12/21/18 05:25 WBC RBC Hgb Hct MCV MCH MCHC RDW Plt Count MPV Gran % Lymphocytes % Monocytes % Eosinophils % Basophils % Sodium Potassium Chloride Carbon Dioxide Anion Gap BUN Creatinine Estimated GFR Random Glucose Calcium Creatine Kinase CK-MB (CK-2) Troponin T < 0.010 VTE H&P Assessment - Risk for VTE Risk for VTE: Yes Risk Level: Moderate Risk Assessment Date: 12/21/18 Risk Assessment Time: 10:00 VTE Orders Placed or Will Be Placed: Yes Plan - Detailed Diagnosis and Plan (1) Heart palpitations Status: Acute Base Code: R00.2 - PALPITATIONS Comment: 12/21/18 -Increased heart palpitations throughout day on 12/20/18 -Likely r/t Cymbalta withdrawal, which was restarted in ED -Troponins normal x 3 -EKG unchanged (2) Medication withdrawal Status: Acute Base Code: F19.939 - OTHER PSYCHOACTIVE SUBSTANCE USE, UNSP WITH WITHDRAWAL, UNSP Comment: 12/21/18 -Has been taking Cymbalta 60mg daily, has been out of prescription x 3 days -Restarted Cymbalta 60mg in ED (3) At risk for deep venous thrombosis Status: Acute Base Code: Z91.89 - OTH PERSONAL RISK FACTORS, NOT ELSEWHERE CLASSIFIED Comment: 12/21/18 -Moderate Risk d/t age and hx of [place] -Nursing to encourage ambulation (4) Full code status Status: Acute Base Code: Z78.9 - OTHER SPECIFIED HEALTH STATUS Comment: 12/21 -Full code this admission
--- NOTE | 2018-12-21 11:10 | Discharge Summary ---
Providers Discharge Summary Date: 12/21/18 Date of admission: 12/20/18 15:14 Attending physician: DA HERNADEZ Primary care physician: RENEA MERINO D.O. Physical Exam - Vital Signs Vital Signs: Vital Signs - Last 24 Hrs Temp Pulse Pulse Resp BP BP BP 12/21/18 08:07 97.7 F 84 17 119/74 12/21/18 03:39 98.2 F 101 H 20 139/91 12/20/18 21:16 97.9 F 69 18 118/73 12/20/18 21:00 78 16 12/20/18 16:39 96 H 17 12/20/18 15:16 98.6 F 96 H 17 138/76 12/20/18 14:57 76 18 128/92 12/20/18 13:30 97.9 F 87 16 155/91 Pulse Ox 12/21/18 08:07 96 12/21/18 03:39 97 12/20/18 21:16 97 12/20/18 21:00 12/20/18 16:39 12/20/18 15:16 96 12/20/18 14:57 97 12/20/18 13:30 99 - General General Appearance: Alert, Oriented x3, Cooperative, No acute distress Limitations: No limitations - Head Head exam: Atraumatic, Normocephalic, Normal inspection - Eye Eye exam: Normal appearance, PERRL, EOMI - ENT Throat exam: Normal inspection. negative: Tonsillar erythema, Tonsillar exudate - Neck Neck exam: Normal inspection, Full ROM. negative: Tenderness - Respiratory Respiratory exam: Normal lung sounds bilaterally. negative: Chest wall tenderness, Respiratory distress - Cardiovascular Cardiovascular Exam: Regular rate, Normal rhythm, Normal heart sounds. negative : Diastolic murmur, Systolic murmur - GI/Abdominal GI/Abdominal exam: Soft, Normal bowel sounds. negative: Tenderness - Extremities Extremities exam: Normal inspection, Full ROM, Normal capillary refill. negative: Tenderness - Back Back exam: Reports: Normal inspection - Neurological Neurological exam: Alert, Normal gait. negative: Abnormal gait, Motor sensory deficit - Psychiatric Psychiatric exam: negative: Anxious Hospitalization - Hospitalization Admission Diagnosis: 1. Acute Heart Palpitations - Problem List/Discharge Diagnosis (1) Heart palpitations Status: Acute Base Code: R00.2 - PALPITATIONS Comment: 12/21/18 -Denies heart palpitations overnight -Likely r/t Cymbalta withdrawal, which was restarted in ED -Troponins normal x 3 -EKG unchanged (2) Medication withdrawal Status: Acute Base Code: F19.939 - OTHER PSYCHOACTIVE SUBSTANCE USE, UNSP WITH WITHDRAWAL, UNSP Comment: 12/21/18 -Has been taking Cymbalta 60mg daily, has been out of prescription x 3 days -Restarted Cymbalta 60mg in ED -#7 prescription of Cymbalta 60mg sent to pharmacy, pt to f/u with PCP for further refills. (3) At risk for deep venous thrombosis Status: Acute Base Code: Z91.89 - OTH PERSONAL RISK FACTORS, NOT ELSEWHERE CLASSIFIED Comment: 12/21/18 -Moderate Risk d/t age and hx of [place] -Nursing to encourage ambulation (4) Full code status Status: Acute Base Code: Z78.9 - OTHER SPECIFIED HEALTH STATUS Comment: 12/21 -Full code this admission - Hospitalization Course Disposition: Home, Self-Care Hospital Course: Ana Luisa Dye is a 48 y.o. Caucaisn F who presented to the [facility] ED on 12/20/18 d/t an 8 hour hx of chest palpitations. Woke up with mild chest palpitations around 6am and then went back to sleep. Awoke a few hours later with worsened chest palpitations. Other symptoms included mild dyspnea, nausea, vomiting and anxiety. Took a Xanax and did not feel any relief. Also noted that she has been out of her Cymbalta x 3 days. Is concerned d/t having a hx of an [place] last year with 3 stents placed. Given her cardiac history, it was felt an overnight observation was warranted. ED Course Vitals: T 97.9, HR 87, RR 16, BP 155/91, SPO2 99 RA EKG: No Acute Changes Labs: Unremarkable, Troponin normal 12/21/18 1030 Vitals: T 97.7, P 84, BP 119/74, RR 17, Sp02 96% RA Reports that she is feeling well, other than being tired d/t not sleeping well last night. Feels that all of these symptoms are likely r/t being without Cymbalta. Procedures: Cardiology Procedures 12/20/18 13:39 EKG NOW 12/20/18 13:53 Business Quality Assurance Analyst NOW 12/20/18 15:16 Business Quality Assurance Analyst .Continuous EKG QDX2@0600 Abnormal Labs: Abnormal Lab Results 12/20/18 12/20/18 Range/Units 13:40 13:40 RDW 14.9 H (11.5-14.5) % MPV 10.6 H (7.4-10.4) fl Monocytes % 11.8 H (0-9) % Carbon Dioxide 21.0 L (22-29) mmol/L Random Glucose 146 H (74-109) mg/dL Condition at Discharge: (2) Stable Discharge Medications - Discharge Medications Prescriptions: Duloxetine HCl [Cymbalta] 60 mg PO DAILY #7 capsule. Home Medications: Ambulatory Orders Aspirin 81 mg PO DAILY 11/09/17 [Last Taken 11/09/17] Lisinopril [Prinivil] 10 mg PO 1200 11/10/17 [Last Taken Unknown] Clopidogrel Bisulfate [Clopidogrel] 75 mg PO DAILY 01/31/18 [Last Taken Unknown] Alprazolam 0.25 mg PO BID PRN 12/20/18 [Last Taken Unknown] Metoprolol Succinate 25 mg PO DAILY 12/20/18 [Last Taken Unknown] Rosuvastatin Calcium [Crestor] 40 mg PO QHS 12/20/18 [Last Taken Unknown] Acetaminophen [Tylenol 325Mg] 650 mg PO Q4H PRN tablet 12/21/18 [Last Taken Unknown] Aspirin Enteric-Coated [Ecotrin (EC)] 325 mg PO DAILY tabec 12/21/18 [Last Taken Unknown] Duloxetine HCl [Cymbalta] 60 mg PO DAILY #7 capsule. 12/21/18 [Last Taken Unknown] Discharge Plan - Discharge Instructions Activity at Discharge: Resume Usual Activities As Tolerated Diet at Discharge: Advance to Usual Diet Instructions: Chest Pain (DC), Heart Palpitations (DC) Additional Instructions: 2 Activity: Resume Usual Activities As Tolerated 2 Diet: Advance to Usual Diet 2 Consults: [] 2 Follow Up: [] 2 Dressing/Wound Care: (Type) (Change) 2 Additional: [] Quality Measures - Quality Measures Quality Measures: Documentation of Current Medications in Medical Record, Screening for High Blood Pressure and F/U Documented - Current Medications Quality Measure: Measure #130: Documentation of Current Medications Documentation of Current Medications: <Current Medications Documented/Reviewed> [G9396] - Blood Pressure Screening Quality Measure: Screening for High Blood Pressure and Follow-Up Documented Does Patient Have Any of the Following: Active Dx of HTN Blood Pressure Classification: Hypertensive Reading Systolic Measurement: 155 Diastolic Measurement: 91 Screening for High Blood Pressure: Patient Exclusion, Hx of HTN [G9744] - Elder Abuse Suspicion Index EASI Reference Information: Yue SEQUEIRA, Estefani C, Woo Cavazos, Wild Ortgea.Development and validation of a tool to assist physicians identification of elder abuse: The Elder Abuse Suspicion Index (EASI ). Journal of Elder Abuse and Neglect, 2008; 20 (3): 276-300.
[2018-12-21] MEDS ORDERED: LISINOPRIL 10 MG TABLET PO SCH (12:00)
== END 2018-12-21 11:40 | disposition home or self-care (01) ==
LOC: ER 13:27 → MEDSURG 15:14
PROVIDERS: ADMIT Internal Medicine; ATTEND Internal Medicine
DX: R00.2 Palpitations (principal); F19.939 Other psychoactive substance use, unspecified with withdrawal, unspecified; F41.8 Other specified anxiety disorders; I25.2 Old myocardial infarction; E78.00 Pure hypercholesterolemia, unspecified; F17.210 Nicotine dependence, cigarettes, uncomplicated; Z95.5 Presence of coronary angioplasty implant and graft; Z95.811 Presence of heart assist device
CPT/HCPCS: 80048; 82550; 82553; 84484; 85025; 93005; 93010; 99220; 99285

== ENCOUNTER 2019-09-08 19:47 | Emergency (ER) | payer MEDICAID ==
[2019-09-08] MEDS ORDERED: ASPIRIN 81 MG CHEWABLE TABLET PO ONE (19:51)
--- NOTE | 2019-09-08 19:52 | Emergency Department Record ---
History of Present Illness - General Stated Complaint: chest pain Time Seen by Provider: 09/08/19 19:50 Source: Patient Mode of Arrival: Ambulatory Limitations: No limitations - History of Present Illness Initial Comments: 49 yo female presents with chest pain. She states it started around 2pm. She reports she has a history of CAD with three stents and prior CO. She states she felt very tired today and stayed in bed. She developed the chest pain around 2pm. The pain is left sided. It comes and goes. She reports feeling short of breath with the pain. The pain does radiate to the back. She reports similar symptoms with her CO in the past. She has had upper respiratory symptoms the last few days as well with cough and congestion. Dr Baumann is her core shaper top. Dr Menjivar in [place] is her PCP. No leg pain or swelling. MD Complaint: Chest pain -: Hour(s) Onset: During rest Pain Location: Left chest Pain Radiation: Back, Other (back) Severity: Moderate Quality: Aching, Sharp Consistency: Intermittent Improves With: Nothing Worsens With: Nothing Anginal Symptoms: Dyspnea, Nausea Other Symptoms: Other Treatments Prior to Arrival: None - Related Data Previous Rx's Medication Instructions Recorded Duloxetine HCl [Cymbalta] 60 mg PO DAILY #7 capsule. 12/21/18 Allergies Allergy/AdvReac Type Severity Reaction Status Date / Time No Known Drug Allergies Allergy Verified 07/04/19 11:33 Review of Systems Constitutional: Reports: Malaise. Denies: Chills, Fever, Weakness Eyes: Denies: Eye discharge ENT: Reports: Congestion. Denies: Throat pain Respiratory: Reports: Cough, Dyspnea. Denies: Hemoptysis, Stridor, Wheezes Cardiovascular: Reports: Chest pain, Dyspnea on exertion. Denies: Edema, Palpitations, Syncope Endocrine: Denies: Fatigue, Polydipsia, Polyuria Gastrointestinal: Reports: Nausea. Denies: Abdominal pain, Diarrhea, Vomiting Genitourinary: Denies: Dysuria, Urgency Musculoskeletal: Reports: Back pain. Denies: Arthralgia, Joint swelling, Myalgia Skin: Denies: Bruising, Change in color, Rash Neurological: Denies: Headache Psychiatric: Denies: Anxiety Hematological/Lymphatic: Denies: Easy bleeding, Easy bruising Past Medical History - SOCIAL HISTORY Smoking Status: Current every day smoker Drug Use: None - RESPIRATORY Hx Respiratory Disorders: No - CARDIOVASCULAR Hx Cardio Disorders: Yes Hx Cardiac Cath: Yes (3 stents) Hx Chest Pain: Yes Hx Heart Attack: Yes Comment:: high cholesterol - NEURO Hx Neuro Disorders: No - GI Hx GI Disorders: No - Hx Genitourinary Disorders: No - ENDOCRINE Hx Endocrine Disorders: No Hx Diabetes: No Hx Thyroid Disease: No - MUSCULOSKELETAL Hx Musculoskeletal Disorders: No - PSYCH Hx Psych Problems: Yes Hx Anxiety: Yes Hx Depression: Yes - HEMATOLOGY/ONCOLOGY Hx Hematology/Oncology Disorders: No Family Medical History Hx Cancer: Father, Brother/Sister, Grandparents Hx Heart Disease: Father, Mother, Grandparents Hx Resp Disorders: Grandparents Hx Stroke: Grandparents Physical Exam - General General Appearance: Alert, Oriented x3, Cooperative, No acute distress Limitations: No limitations - Head Head exam: Atraumatic, Normal inspection - Eye Eye exam: Normal appearance, PERRL. negative: Conjunctival injection, Scleral icterus - ENT ENT exam: Normal exam Ear exam: Normal external inspection Nasal Exam: Normal inspection Mouth exam: Normal external inspection - Neck Neck exam: Normal inspection, Full ROM. negative: Lymphadenopathy - Respiratory Respiratory exam: Normal lung sounds bilaterally. negative: Chest wall tenderness, Decreased breath sounds, Prolonged expiratory, Respiratory distress, Rhonchi, Stridor, Wheezes - Cardiovascular Cardiovascular Exam: Regular rate, Normal rhythm, Normal heart sounds Peripheral Pulses: 2+: Radial (R), Radial (L) - GI/Abdominal GI/Abdominal exam: Soft. negative: Distended, Guarding, Tenderness - Rectal Rectal exam: Deferred - exam: Deferred - Extremities Extremities exam: Normal inspection. negative: Calf tenderness, Pedal edema, Tenderness - Back Back exam: Denies: CVA tenderness (R), CVA tenderness (L) - Neurological Neurological exam: Alert, Oriented X3 - Psychiatric Psychiatric exam: Normal affect, Normal mood. negative: Agitated, Anxious - Skin Skin exam: Dry, Intact. negative: Cyanosis, Diaphoretic, Mottled Course - Reevaluation(s) Reevaluation #1: 09/08/19 19:57 EKG #1: 19:50 Rate: 99 Rhythm: sinus Novinger: normal Intervals: normal ST segments: normal Prior: 05/02/19 09/08/19 20:36 The labs were reviewed No changes on the CBC No significant changes on the CMP The troponin is negative at 0.01 The chest XR is negative for acute process 09/08/19 21:34 The CTA was negative for acute process The results were discussed with the patient She reports the chest pain is gone. Given her higher risk I recommend transfer to [facility] [place] given there is no cardiology at [facility] tomorrow The patient reports she has not had a stress test since her CO [facility] was contacted for transfer. 09/08/19 21:47 Dr Weldon of [facility] medicine accepts the patient for transfer for chest pain Medical Decision Making - Lab Data Result diagrams: 09/08/19 19:50 09/08/19 19:50 Disposition Disposition: Transfer Clinical Impression: Chest pain Disposition: Acute Care Hospital Transfer Transfer To: [facility] Reason For Transfer: Chest pain Hx of stents/CAD Accepting Physician: Fatemeh Time Discussed w/Accepting Physician: 21:47 Condition: (2) Stable Time of Disposition: 21:38 Quality - Quality Measures Quality Measures: N/A - Blood Pressure Screening Does Patient Have Any of the Following: No Blood Pressure Classification: Hypertensive Reading Systolic Measurement: 172 Diastolic Measurement: 64 Screening for High Blood Pressure: < Pre-Hypertensive BP, F/U Documented > [G895 0] Pre-Hypertensive Follow-up Interventions: Referral to alternative/primary care provider.
[2019-09-08 19:58] LABS: ABSOLUTE NEUTROPHIL COUNT 5.94; BASO % 0.4 % (0-6); EOS % 0.3 % (0-6); GRAN % 55.3 % (47-80); HEMATOCRIT 46.2 % (35.0-47.0); LYMPH % 31.3 % (16-45); MEAN CELL VOLUME 93.1 fl (81-97); MEAN CORPUSCULAR HEMOGLOBIN 30.2 pg (27-33); MEAN CORPUSCULAR HGB CONC 32.5 g/dl (32-36); MEAN PLATELET VOLUME 10.4 fl (7.4-10.4); MONO % 12.7 % (0-9); PLATELET COUNT 290 K/uL (130-400); RED BLOOD COUNT 4.96 M/uL (3.80-5.40); RED CELL DISTRIBUTION WIDTH 14.5 % (11.5-14.5); WHITE BLOOD COUNT W/O DIFF 10.7 K/uL (4.2-12.2)
[2019-09-08] MEDS ORDERED: NITROGLYCERIN 0.4MG SL TABLET #25 BTL SL PRN (20:02)
[2019-09-08] MEDS ORDERED: MORPHINE SULFATE 5 MG/ML VIAL IVP ONE (20:02)
[2019-09-08 20:13] LABS: BLOOD UREA NITROGEN 7 mg/dL (6-20); CREATININE 0.8 mg/dL (0.5-0.9); EST GLOMERULAR FILTRATION RATE > 60 mL/min; PARTIAL THROMBOPLASTIN TIME 28.6 SECONDS (24.5-39.1); PROTHROMBIN TIME (PATIENT) 9.9 SECONDS (9.5-12.1)
[2019-09-08 20:14] LABS: TOTAL PROTEIN 8.3 g/dL (6.6-8.7)
[2019-09-08 20:16] LABS: GLUCOSE,RANDOM 78 mg/dL (74-109)
[2019-09-08 20:19] LABS: ALB/GLOB RATIO 1.4 (1.1-1.8); ALBUMIN 4.8 g/dL (4.0-5.0); ALKALINE PHOSPHATASE 122 U/L (35-104); ALT/SGPT 34 U/L (<33); AST/SGOT 37 U/L (10.0-35.0)
--- NOTE | 2019-09-08 20:21 | RADIOLOGY REPORT ---
EXAMINATION: Single View Chest EXAM DATE: 09/08/2019 8:03 PM TECHNIQUE: Single view chest INDICATION: CHEST PAIN COMPARISON: 05/02/2019 ENCOUNTER: Not applicable FINDINGS: The heart, mediastinum, and pulmonary vasculature are normal. No lung consolidation or pleural effu sions are present. No pneumothorax is present. IMPRESSION: No findings to suggest acute pulmonary parenchymal process. Dictated by: Antoni Moran MD on 09/08/2019 8:18 PM. .
[2019-09-08] MEDS ORDERED: ACETAMINOPHEN 1,000 MG/100 ML BTL IVPB ONE (20:22)
--- NOTE | 2019-09-08 21:31 | CT ANGIOGRAM REPORT ---
EXAMINATION: CT Angiography of the Thorax EXAM DATE: 09/08/2019 9:11 PM TECHNIQUE: Standard protocol CT angiogram images were obtained through the chest following the admini stration of intravenous contrast. Coronal and sagittal MIP 3-D reformations were performed. IV Contrast: The amount and type of contrast are recorded in the medical record. INDICATION: chest pain radiates to back. COMPARISON: Chest x-ray earlier same day a surgical ENCOUNTER: Not applicable FINDINGS: Pulmonary Artery: No saddle embolus. No pulmonary embolus within the main pulmonary arteries. Streak artifact from contrast within the vena cava is present and limits evaluation of the subjacent right u pper lobe pulmonary artery. Areas of inhomogeneity in this region may be due to artifact. No other ar eas of pulmonary emboli are identified. Aorta: Motion artifact at the aortic root. Remainder of the aorta shows no evidence for dissection. Heart : There is no pericardial effusion. Coronary stent is present. Eva and Mediastinum: No lymphadenopathy. Lung Parenchyma: Normal. Central Airways: Normal. Pleural Effusion: None. Upper Abdomen: Unremarkable. Musculoskeletal and Chest Wall: Unremarkable. IMPRESSION: No convincing pulmonary embolus. Areas of inhomogeneity within pulmonary vessels posterior to the tamika a cava most likely felt to represent artifact. No aortic dissection. Lung toro are clear Dictated by: Cris Holman MD on 09/08/2019 9:16 PM. .
== END 2019-09-08 22:34 | disposition short-term general hospital (02) ==
LOC: ER 19:47
DX: R07.9 Chest pain, unspecified (principal); I25.10 Atherosclerotic heart disease of native coronary artery without angina pectoris; E78.00 Pure hypercholesterolemia, unspecified; F17.210 Nicotine dependence, cigarettes, uncomplicated
CPT/HCPCS: 71045; 71275; 80053; 84484; 85025; 85610; 85730; 93005; 93010; 93041; 96365; 96375; 99285

== ENCOUNTER 2019-11-28 07:19 | Emergency (ER) | payer MEDICAID ==
[2019-11-28] MEDS ORDERED: ACETAMINOPHEN 325 MG TAB PO ONE (07:35)
--- NOTE | 2019-11-28 07:40 | Emergency Department Record ---
History of Present Illness - General Chief Complaint: Fall Injury Stated Complaint: FALL/KNEE INJURY Time Seen by Provider: 11/28/19 07:26 Source: Patient Mode of Arrival: Ambulatory Limitations: No limitations - History of Present Illness Initial Comments: The patient is here due to L knee and hip pain. She slipped last evening and landed on her L hip and knee. Those areas have been painful since. THe patient is able to walk with minimal pain. There was no head trauma or neck pain. MD Complaint: Fall Onset/Timin -: Days(s) Fall From: Other When Fall Occurred: 24 hours [employer]PUT[employer] Fall Witnessed: No Place Fall Occurred: Home Loss of Consciousness: None Prolonged Down Time?: No Symptoms Prior to Fall: None Severity scale (1-10): 6 Quality: Aching Context: Tripped/slipped Associated Symptoms: Denies - Related Data Previous Rx's Medication Instructions Recorded Duloxetine HCl [Cymbalta] 60 mg PO DAILY #7 capsule. 12/21/18 Allergies Allergy/AdvReac Type Severity Reaction Status Date / Time No Known Drug Allergies Allergy Verified 07/04/19 11:33 Travel/Exposure Screening - Travel/Exposure Within Last 30 Days Have you traveled within the last 30 days?: No - Additonal Travel/Exposure Details Have you been exposed to anyone with a communicable illness?: No Review of Systems Constitutional: Denies: Chills, Fever Eyes: Denies: Eye discharge ENT: Denies: Congestion Respiratory: Denies: Cough, Dyspnea Past Medical History - SOCIAL HISTORY Smoking Status: Current every day smoker - RESPIRATORY Hx Respiratory Disorders: No - CARDIOVASCULAR Hx Cardio Disorders: Yes Hx Cardiac Cath: Yes (3 stents) Hx Chest Pain: Yes Hx Heart Attack: Yes Comment:: high cholesterol - NEURO Hx Neuro Disorders: No - GI Hx GI Disorders: No - Hx Genitourinary Disorders: No - ENDOCRINE Hx Endocrine Disorders: No Hx Diabetes: No Hx Thyroid Disease: No - MUSCULOSKELETAL Hx Musculoskeletal Disorders: No - PSYCH Hx Psych Problems: Yes Hx Anxiety: Yes Hx Depression: Yes - HEMATOLOGY/ONCOLOGY Hx Hematology/Oncology Disorders: No Family Medical History Any Significant Family History?: Yes Hx Cancer: Father, Brother/Sister, Grandparents Hx Heart Disease: Father, Mother, Grandparents Hx Resp Disorders: Grandparents Hx Stroke: Grandparents Physical Exam - General General Appearance: Alert, Oriented x3, Cooperative, No acute distress - Head Head exam: Atraumatic, Normocephalic - Eye Eye exam: Normal appearance - Neck Neck exam: Normal inspection, Full ROM. negative: Tenderness - Respiratory Respiratory exam: Normal lung sounds bilaterally. negative: Respiratory distress - Cardiovascular Cardiovascular Exam: Regular rate, Normal rhythm, Normal heart sounds - GI/Abdominal GI/Abdominal exam: Soft, Normal bowel sounds. negative: Tenderness - Extremities Extremities exam: Full ROM, Normal capillary refill, Tenderness (There is tenderness to the inferior anterior L knee over the proximal tibial area and also to the lateral L hip area.), Other (The L leg is NVI. The patient did land on her L elbow but it is not painful or tender. She does have normal ROM of the L elbow.). negative: Normal inspection (There is brusing to the anterior inferior knee and mildly to the L hip.), Calf tenderness, Joint swelling, Pedal edema Image of Full Body: 1 - Bruising and tenderness. 2 - Bruising and tenderness. Course Vital Signs 11/28/19 07:27 Temperature 98.6 F Pulse Rate 94 H Respiratory 18 Rate Blood Pressure 140/83 Pulse Ox 99 - Reevaluation(s) Reevaluation #1: The patient is doing better at this time. I did discuss the neg xrays with the patient and the need for rest and ice. She is to see her PCP later this week if not better. 11/28/19 08:26 Medical Decision Making - Data Complexity MDM Data: X-Ray Ordered and/or Reviewed - Radiology Data Radiology results: Report reviewed (L hip and knee: Neg for any acute changes.) Disposition Disposition: Discharge Clinical Impression: Contusion, knee and lower leg Qualifiers: Encounter type: initial encounter Laterality: left Qualified Code(s): S80.02XA - Contusion of left knee, initial encounter Disposition: Home, Self-Care Condition: (2) Stable Instructions: Contusion in Adults (ED) Additional Instructions: Please rest and take your home pain medicines. Please see your doctor later this week for recheck if not better. Return to the ER for any worsening issues. Forms: Patient Portal Access Time of Disposition: 08:24 Quality - Quality Measures Quality Measures: N/A - Blood Pressure Screening View Details: Yes Does Patient Have Any of the Following: No Blood Pressure Classification: Pre-Hypertensive BP Reading Systolic Measurement: 140 Diastolic Measurement: 83 Screening for High Blood Pressure: < Pre-Hypertensive BP, F/U Documented > [G8950] Pre-Hypertensive Follow-up Interventions: Referral to alternative/primary care provider.
--- NOTE | 2019-11-28 08:18 | RADIOLOGY REPORT ---
EXAMINATION: Left Hip Minimum Two Views EXAM DATE: 11/28/2019 7:56 AM TECHNIQUE: AP pelvis and left frog leg lateral hip views INDICATION: trauma COMPARISON: None ENCOUNTER: Initial FINDINGS: 3 views left hip show no evidence of fracture or dislocation. Alignment is anatomic. IMPRESSION: No fracture or dislocation. Dictated by: Jayesh Bajwa MD on 11/28/2019 8:15 AM. .
--- NOTE | 2019-11-28 08:19 | RADIOLOGY REPORT ---
EXAMINATION: Left Knee, Three Views EXAM DATE: 11/28/2019 7:56 AM TECHNIQUE: Frontal, lateral, and oblique INDICATION: trauma COMPARISON: None ENCOUNTER: Initial FINDINGS: 3 views of the left knee show no evidence of fracture or dislocation. Alignment is anatomic. There is no joint effusion. No degenerative changes are noted. IMPRESSION: No fracture or dislocation. Dictated by: Jayesh Bajwa MD on 11/28/2019 8:17 AM. .
== END 2019-11-28 08:31 | disposition home or self-care (01) ==
LOC: ER 07:19
DX: S80.02XA Contusion of left knee, initial encounter (principal); S70.02XA Contusion of left hip, initial encounter; W01.10XA Fall on same level from slipping, tripping and stumbling with subsequent striking against unspecified object, initial encounter; Y92.009 Unspecified place in unspecified non-institutional (private) residence as the place of occurrence of the external cause; I25.2 Old myocardial infarction; F17.210 Nicotine dependence, cigarettes, uncomplicated
CPT/HCPCS: 99284